=== PATIENT | female | born 1995 | race Caucasian/White ===

== ENCOUNTER 2017-01-19 13:32 | Emergency (ER) | payer SELFPAY ==
[~2017-01-19 13:32] MED LIST: BACI28.34 TP; MUPI15CR TP; PARO20TA3 PO; TRAZ100T12 PO
--- NOTE | 2017-01-19 14:39 | RAD ---
Facial bones, 3 views, 01/19/2017: History: Fall, injury There is a lucency projected over the right zygomatic arch on one view raising the possibility of a nondisplaced fracture. No other fracture is identified. The paranasal sinuses are clear. IMPRESSION: Possible nondisplaced right zygomatic arch fracture.
--- NOTE | 2017-01-19 14:59 | PHYS DOC ---
General Chief Complaint: LACERATION/AVULSION Stated Complaint: FACE LACERATION Time Seen by MD: 14:14 Source: patient Exam Limitations: no limitations Problems: History of Present Illness Initial Comments Pt is 21/F to ED c/o fall injury. Pt states this am she tripped and fell hitting right cheek on pavement. No LOC , +TOUSSAINT no neck pain. Pt has had mild TOUSSAINT and grogginess no focal ND no n/v, no new/progressive symptoms. TD UTD, tried pressure at home but this afternoon decided to come for evaluation. Complains of right cheek pain no ear/nose disch. Occurred: this morning Severity: moderate Injuries/Pain Location: face Context: tripped Loss of Consciousness: no loss of consciousness Allergies: Coded Allergies: No Known Drug Allergies (Unverified , 10/05/15) Past Medical History Medical History: other (self mutilation) Surgical History: noncontributory Social History Smoker: non-smoker Alcohol: none Drugs: none Review of Systems Constitutional: denies chills, denies fever, denies malaise Eyes: denies inflammation, denies pain, denies photophobia Ears, Nose, Mouth, Throat: denies ear discharge, denies nose discharge, denies epistaxis, denies mouth swelling, denies throat swelling Respiratory: denies cough, denies shortness of breath Cardiovascular: denies chest pain, denies palpitations, denies syncope Gastrointestinal: denies diarrhea, denies nausea, denies vomiting Genitourinary: denies dysuria, denies frequency, denies hematuria Musculoskeletal: denies back pain, denies joint swelling, denies neck pain Skin: see HPI Psychiatric/Neurological: denies headache, denies numbness, denies paresthesia Physical Exam General Appearance: WD/WN, no apparent distress Head: other (negative boyd/raccoon eyes, no ear/nose discharge no fluid behind TMs b/l) Eyes: bilateral eye EOMI, bilateral eye PERRL, bilateral eye normal inspection Ears, Nose, Mouth, Throat: hearing grossly normal, no evidence of ENT injury, no dental injury (R facial lac) Neck: non-tender, full range of motion, normal alignment Cardiovascular/Respiratory: normal peripheral pulses, no respiratory distress Gastrointestinal: non tender, soft Back: no CVA tenderness, no vertebral tenderness Extremities: no evidence of injury, normal range of motion, non-tender Neurologic/Psychiatric: explosive specialist II-XII nml as tested, no motor/sensory deficits, alert, normal mood/affect, oriented x 3 Skin: normal color, warm/dry (numerous scars on each extremity appears resultant from self mutilation/cutting all healed. Very superficial clean linear abrasion/laceration R face oriented axially from R malar to R mandible border. No FB, appears to be healing and not new injury no bleeding. Wound edges appear to have some granulation tissue between them, with effort they will approximate.) Tracy Coma Score Best Eye Response: (4) open spontaneously Best Verbal Response: (5) oriented Best Motor Response: (6) obeys commands Tracy Total: 15 Orders, Labs, Meds PATIENT: JEAN YOUNG ACCOUNT: [id number] : 1995 LOCATION: ER AGE: 21 SEX: F EXAM STATUS: REG ER ORD. PHYSICIAN: ALPA BAUMANN DO REASON: fall, R facial trauma PROCEDURE: FACIAL BONES 3+V Facial bones, 3 views, 01/19/2017: History: Fall, injury There is a lucency projected over the right zygomatic arch on one view raising the possibility of a nondisplaced fracture. No other fracture is identified. The paranasal sinuses are clear. IMPRESSION: Possible nondisplaced right zygomatic arch fracture. DICTATED AND SIGNED BY: AJ BLOUNT MD DATE: 01/19/17 1434 CC: PCP,NO; ALPA BAUMANN DO ~ PATIENT: JEAN YOUNG ACCOUNT: [id number] : 1995 LOCATION: ER AGE: 21 SEX: F EXAM STATUS: REG ER ORD. PHYSICIAN: ALPA BAUMANN DO REASON: fall/trauma, questionable fx on XR PROCEDURE: HEAD AND MAXILLOFACIAL WO Indication injury to the head and face. Pain. Noncontrast images of the head were obtained. Maxillofacial CT was also performed. Images of the facial bones were reformatted in the coronal and sagittal planes. Note is made of a prior CT examination of the head November 30, 2015 interpreted as showing no acute finding. Note is made of plain films of the facial bones suggesting a possible fracture of the right zygomatic arch. CT head: Findings The calvarium appears unremarkable. The visualized paranasal sinuses appear normal. There is no subdural or epidural hematoma. There is no mass or midline shift. No hemorrhage is seen. No acute intracranial finding is apparent. Maxillofacial CT: Findings The mandible appears unremarkable. Zygomatic arches appear normal. No fracture involving the right zygomatic arch seen. No maxillary or orbital fracture is seen. A significant soft tissue finding is not apparent. IMPRESSION: Intracranially no acute finding seen. No facial fracture seen PQRS Compliance Statement: One or more of the following individualized dose reduction techniques were utilized for this examination: 1. Automated exposure control 2. Adjustment of the mA and/or kV according to patient size 3. Use of iterative reconstruction technique DICTATED AND SIGNED BY: ROBIN ORNELAS MD DATE: 01/19/17 1534 CC: PCP,NO; ALPA BAUMANN DO ~ Pt reiterates wound not self inflicted and occurred today. I discussed treatment options. Pt requests tissue adhesive. I discussed wound appearance, specifically that portions of it appear to be an abrasion/avulsion with missing skin. Wound also appears to be healing. Tissue adhesive used to approximate wound edges, pt tolerated well no complications. Pt understands scarring is inevitable. Departure Time of Disposition: 15:55 Disposition: 01 HOME, SELF-CARE Diagnosis: Facial laceration, concussion, fall injury Condition: IMPROVED Patient Instructions: Concussion and Brain Injury, [id number], Tissue Adhesive Wound Care Additional Instructions: No strenuous activity or workouts until cleared by your doctor. Work excuse thru 01/21. OTC tylenol as needed. Keep wound dry for 48 hours. After 48 hours may wash briefly with soap and warm water, blot dry. Change dressing each wash. Leave steri strips in place until they fall off. Follow up with your doctor in 5-7 days. Return to ED with new or changing symptoms. ALPA BAUMANN DO Jan 19, 2017 14:59
--- NOTE | 2017-01-19 15:44 | RAD ---
Indication injury to the head and face. Pain. Noncontrast images of the head were obtained. Maxillofacial CT was also performed. Images of the facial bones were reformatted in the coronal and sagittal planes. Note is made of a prior CT examination of the head November 30, 2015 interpreted as showing no acute finding. Note is made of plain films of the facial bones suggesting a possible fracture of the right zygomatic arch. CT head: Findings The calvarium appears unremarkable. The visualized paranasal sinuses appear normal. There is no subdural or epidural hematoma. There is no mass or midline shift. No hemorrhage is seen. No acute intracranial finding is apparent. Maxillofacial CT: Findings The mandible appears unremarkable. Zygomatic arches appear normal. No fracture involving the right zygomatic arch seen. No maxillary or orbital fracture is seen. A significant soft tissue finding is not apparent. IMPRESSION: Intracranially no acute finding seen. No facial fracture seen PQRS Compliance Statement: One or more of the following individualized dose reduction techniques were utilized for this examination: 1. Automated exposure control 2. Adjustment of the mA and/or kV according to patient size 3. Use of iterative reconstruction technique
[2017-01-19 16:05] VITALS: BP 126/94
== END 2017-01-19 16:05 | disposition home or self-care (01) ==
LOC: ER 13:32
DX: S06.0X0A Concussion without loss of consciousness, initial encounter (principal); S01.411A Laceration without foreign body of right cheek and temporomandibular area, initial encounter; W01.0XXA Fall on same level from slipping, tripping and stumbling without subsequent striking against object, initial encounter; Y93.89 Activity, other specified; Y99.8 Other external cause status; Y92.89 Other specified places as the place of occurrence of the external cause
CPT/HCPCS: 70150; 70450; 70486; 99284-25

== ENCOUNTER 2018-03-12 22:33 | Emergency (ER) | payer SELFPAY ==
[~2018-03-12] VITALS: Ht 167.6 cm; Wt 81.6 kg
[2018-03-12 22:33] VITALS: BP 144/61
[~2018-03-12 22:33] MED LIST changes: +TRAZ-90 PO; -TRAZ100T12 PO
[2018-03-13] MEDS ORDERED: ONDANSETRON PF 4 MG/2 ML VIAL. IV ONE (00:15)
[2018-03-13] MEDS ORDERED: IV NORMAL SALINE 1,000ML 1,000 ML IV ONE (00:15)
[2018-03-13 00:29] LABS: U PREG PATIENT NEGATIVE (NEG)
[2018-03-13] MEDS ORDERED: ONDANSETRON ODT 4 MG TAB.RAPDIS ONE (00:32)
[2018-03-13] MEDS ORDERED: ACETAMINOPHEN 500 MG TABLET PO ONE ×3 (00:32→05:15)
[2018-03-13 01:22] LABS: HEMOGLOBIN ISTAT 12.9 gm/dL
[2018-03-13] MEDS ORDERED: ONDA4TAB10 SL (02:52)
--- NOTE | 2018-03-13 02:52 | PHYS DOC ---
Past History Past Medical History: No Pertinent History Past Surgical History: Cholecystectomy Smoking: Non-smoker Alcohol Use: None Drug Use: None Adult General Chief Complaint Chief Complaint: ABDOMINAL PAIN HPI HPI 22-year-old female without significant past medical history now presents to the emergency department reporting several day history of nausea and vomiting. Patient denies fevers chills sweats or shaking chills. She has no abdominal or pelvic pain. Reports normal bowel bladder habits. She has no chest pain or shortness of breath. Denies headache or stiff neck. Patient denies marijuana use as well as cyclic vomiting syndrome history Review of Systems Review of Systems Constitutional: Denies fever or chills [] Eyes: Denies change in visual acuity, redness, or eye pain [] HENT: Denies nasal congestion or sore throat [] Respiratory: Denies cough or shortness of breath [] Cardiovascular: No additional information not addressed in HPI [] GI: Denies abdominal pain, nausea, vomiting, bloody stools or diarrhea [] : Denies dysuria or hematuria [] Musculoskeletal: Denies back pain or joint pain [] Integument: Denies rash or skin lesions [] Neurologic: Denies headache, focal weakness or sensory changes [] Endocrine: Denies polyuria or polydipsia [] All other systems were reviewed and found to be within normal limits, except as documented in this note. Current Medications Current Medications Current Medications Medications (Trade) Dose Ordered Sig/[facility] Start Time Stop Time Status Last Admin Dose Admin Acetaminophen (Tylenol) 500 mg STK-MED ONCE 03/13/18 00:32 03/13/18 00:33 DC Ondansetron HCl (Zofran Odt) 4 mg STK-MED ONCE 03/13/18 00:32 03/13/18 00:33 DC Ondansetron HCl (Zofran) 4 mg 1X ONCE 03/13/18 00:15 03/13/18 00:16 DC Sodium Chloride 1,000 ml @ 1,000 mls/hr 1X ONCE 03/13/18 00:15 03/13/18 01:14 DC 03/13/18 00:15 1,000 MLS/HR Allergies Allergies Allergies Coded Allergies Type Severity Reaction Last Updated Verified No Known Drug Allergies 10/05/15 No Physical Exam Physical Exam Constitutional: Well developed, well nourished, no acute distress, non-toxic appearance. [] HENT: Normocephalic, atraumatic, bilateral external ears normal, oropharynx moist, no oral exudates, nose normal. [] Eyes: PERRLA, EOMI, conjunctiva normal, no discharge. [] Neck: Normal range of motion, no tenderness, supple, no stridor. [] Cardiovascular:Heart rate regular rhythm, no murmur [] Lungs & Thorax: Bilateral breath sounds clear to auscultation [] Abdomen: Bowel sounds normal, soft, no tenderness, no masses, no pulsatile masses. [] Skin: Warm, dry, no erythema, no rash. [] Back: No tenderness, no CVA tenderness. [] Extremities: No tenderness, no cyanosis, no clubbing, ROM intact, no edema. [] Neurologic: Alert and oriented X 3, normal motor function, normal sensory function, no focal deficits noted. [] Psychologic: Affect normal, judgement normal, mood normal. [] Current Patient Data Lab Results Laboratory Tests Test 03/12/18 23:39 03/13/18 01:04 Urine Test Negative (NEG) POC Hemoglobin 12.9 gm/dL POC Hematocrit 38 % POC Sodium 141 mmol/L (135-145) POC Potassium 4.0 mmol/L (3.5-5.0) POC Chloride 101 mmol/L (98-110) POC Total CO2 24 mmol/L (23-32) Anion Gap 20 mmol/L (6-14) H POC Blood Urea Nitrogen 22 mg/dL (8-26) POC Creatinine 0.5 mg/dL (0.5-1.4) Glucose Level 98 mg/dL (60-99) POC Ionized Calcium (Isis) 1.25 mmol/L (1.13-1.32) EKG EKG [] Radiology/Procedures Radiology/Procedures [] Course & Med Decision Making Course & Med Decision Making Pertinent Labs and Imaging studies reviewed. (See chart for details) Signs and symptoms consistent with nausea and vomiting likely secondary to a viral syndrome. Patient is clinically stable and feels improved after IV fluids and treatment. No further workup or treatment is indicated. Patient agrees with outpatient follow-up and strict return precautions given [] Dragon Disclaimer Dragon Disclaimer This electronic medical record was generated, in whole or in part, using a voice recognition dictation system. Departure Departure: Impression: Primary Impression: Nausea and vomiting Disposition: HOME, SELF-CARE Condition: IMPROVED Referrals: [facility] (PCP) Patient Instructions: Nausea and Vomiting Additional Instructions: It is not clear what is causing your nausea and vomiting today. Take Zofran 4 mg under your tongue every 4 hours as needed. Rest and drink plenty of fluids. Follow-up with your doctor later today and return immediately for new severe or worsening symptoms Scripts Ondansetron (ZOFRAN ODT) 4 Mg Tab.rapdis 1 TAB SL Q4HRS, #15 TAB Prov: DANIEL HOFFMAN MD 03/13/18 DANIEL HOFFMAN MD March 13, 2018 02:52
[2018-03-13] MEDS ORDERED: ONDANSETRON ODT 4 MG TAB.RAPDIS PO ONE (05:15)
== END 2018-03-13 03:00 | disposition home or self-care (01) ==
LOC: ER 22:33
DX: R11.2 Nausea with vomiting, unspecified (principal)
CPT/HCPCS: 36415; 80047; 81025; 85014; 85018; 96360; 96361; 99285; Q0162; J7030

== ENCOUNTER 2019-03-15 18:15 | Emergency (ER) | payer SELFPAY ==
[~2019-03-15] VITALS: Ht 170.2 cm; Wt 82.8 kg
[~2019-03-15 18:15] MED LIST changes: +ONDA4TAB10 SL; +TRAZ-86 PO; -TRAZ-90 PO
--- NOTE | 2019-03-15 18:41 | ED.ADGEN ---
Past History Past Medical History: No Pertinent History, Anxiety, Depression Past Surgical History: Cholecystectomy Smoking: Non-smoker Alcohol Use: Occasionally Drug Use: None Adult General Chief Complaint Chief Complaint ".. My dog Malinda... jerks when I walk her... and it hurt my Lt. shoulder..." HPI HPI Patient is a 23 year old female who presents with above hx and complaints of Lt. shoulder injury from her [place] [employer] 'Malinda" jerking on the lease 2 weeks ago. Pt. localizes pain in deltoid of Lt shoulder. Does have range of motion with mild tenderness when held at side. Distal neurovascular intact. Patient is right-hand dominant. Patient denies prior injury to left shoulder. No history of travel. No history immunosuppression. Patient does have a history of anxiety disorder and depression. . Review of Systems Review of Systems Constitutional: Denies fever or chills [] Eyes: Denies change in visual acuity, redness, or eye pain [] HENT: Denies nasal congestion or sore throat [] Respiratory: Denies cough or shortness of breath [] Cardiovascular: No additional information not addressed in HPI [] GI: Denies abdominal pain, nausea, vomiting, bloody stools or diarrhea [] : Denies dysuria or hematuria [] Musculoskeletal: Denies back pain or joint pain []complains of left shoulder pain Integument: Denies rash or skin lesions [] Neurologic: Denies headache, focal weakness or sensory changes [] Endocrine: Denies polyuria or polydipsia [] All other systems were reviewed and found to be within normal limits, except as documented in this note. Family History Family History Noncontributory Current Medications Current Medications Current Medications Medications (Trade) Dose Ordered Sig/[facility] Start Time Stop Time Status Last Admin Dose Admin Ketorolac Tromethamine (Toradol Im) 60 mg 1X ONCE 03/15/19 20:15 03/15/19 20:16 DC 03/15/19 20:04 60 MG Allergies Allergies Allergies Coded Allergies Type Severity Reaction Last Updated Verified No Known Drug Allergies 10/05/15 No Physical Exam Physical Exam Constitutional: no acute distress, non-toxic appearance. [] HENT: Normocephalic, atraumatic, bilateral external ears normal, oropharynx moist, no oral exudates, nose normal. [] Eyes: PERRLA, EOMI, conjunctiva normal, no discharge. [] Neck: Normal range of motion, no tenderness, supple, no stridor. [] Cardiovascular:Heart rate regular rhythm, no murmur [] Lungs & Thorax: Bilateral breath sounds clear to auscultation [] Abdomen: Bowel sounds normal, soft, no tenderness, no masses, no pulsatile masses. [] Old surgery scars Skin: Warm, dry, no erythema, no rash. [] Multiple self cutting roberson and scars. Back: No tenderness, no CVA tenderness. [] Extremities: No tenderness, no cyanosis, no clubbing, ROM intact, no edema. [] Mild tenderness in range of motion of left shoulder. Has deltoid sensation. Neurologic: Alert and oriented X 3, normal motor function, normal sensory function, no focal deficits noted. [] Psychologic: Affect anxious, judgement normal, mood normal. [] Current Patient Data Vital Signs Vital Signs Date Time Temp Pulse Resp B/P (MAP) Pulse Ox O2 Delivery O2 Flow Rate FiO2 03/15/19 20:18 93 20 121/80 (94) 98 Room Air 03/15/19 18:25 97.7 Lab Results Laboratory Tests Test 03/15/19 18:55 03/15/19 19:05 Urine Collection Type Unknown Urine Color Yellow Urine Clarity Turbid Urine pH 6.5 Urine Specific Jack 1.020 Urine Protein Neg (NEG-TRACE) Urine Glucose (UA) Neg mg/dL (NEG) Urine Ketones (Stick) Neg mg/dL (NEG) Urine Blood Small (NEG) Urine Nitrite Neg (NEG) Urine Bilirubin Neg (NEG) Urine Urobilinogen Dipstick 0.2 mg/dL (0.2 mg/dL) Urine Leukocyte Esterase Trace (NEG) Urine RBC 1-2 /HPF (0-2) Urine WBC 1-4 /HPF (0-4) Urine Squamous Epithelial Cells Occ /LPF Urine Bacteria Few /HPF (0-FEW) Urine Mucus Slight /LPF Urine Opiates Screen Neg (NEG) Urine Methadone Screen Neg (NEG) Urine Barbiturates Neg (NEG) Urine Phencyclidine Screen Neg (NEG) Urine Amphetamine/Methamphetamine Neg (NEG) Urine Benzodiazepines Screen Neg (NEG) Urine Cocaine Screen Neg (NEG) Urine Cannabinoids Screen Neg (NEG) Urine Ethyl Alcohol Neg (NEG) POC Urine HCG, Qualitative hcg negative (Negative) EKG EKG [] Radiology/Procedures Radiology/Procedures My interpretation chest x-ray shows no acute cardiopulmonary findings. My interpretation left shoulder shows no obvious fracture or dislocation.[] Course & Med Decision Making Course & Med Decision Making Pertinent Labs and Imaging studies reviewed. (See chart for details). Use ice packs as needed. Rest. Keep passive range of motion in left shoulder. Take Tylenol and ibuprofen for pain. Return if any concerns. Follow-up primary care. [] Final Impression Final Impression 1. Shoulder Strain[] Lt. 2. History of anxiety 3. History depression 4. History of self cutting Dragon Disclaimer Dragon Disclaimer This electronic medical record was generated, in whole or in part, using a voice recognition dictation system. Discharge Summary Visit Information Final Diagnosis Problems Medical Problems: (1) Left shoulder strain Status: Acute Brief Hospital Course Allergies Allergies Coded Allergies Type Severity Reaction Last Updated Verified No Known Drug Allergies 10/05/15 No Vital Signs Vital Signs Date Time Temp Pulse Resp B/P (MAP) Pulse Ox O2 Delivery O2 Flow Rate FiO2 03/15/19 20:18 93 20 121/80 (94) 98 Room Air 03/15/19 18:25 97.7 Lab Results Laboratory Tests Test 03/15/19 18:55 03/15/19 19:05 Urine Collection Type Unknown Urine Color Yellow Urine Clarity Turbid Urine pH 6.5 Urine Specific Jack 1.020 Urine Protein Neg (NEG-TRACE) Urine Glucose (UA) Neg mg/dL (NEG) Urine Ketones (Stick) Neg mg/dL (NEG) Urine Blood Small (NEG) Urine Nitrite Neg (NEG) Urine Bilirubin Neg (NEG) Urine Urobilinogen Dipstick 0.2 mg/dL (0.2 mg/dL) Urine Leukocyte Esterase Trace (NEG) Urine RBC 1-2 /HPF (0-2) Urine WBC 1-4 /HPF (0-4) Urine Squamous Epithelial Cells Occ /LPF Urine Bacteria Few /HPF (0-FEW) Urine Mucus Slight /LPF Urine Opiates Screen Neg (NEG) Urine Methadone Screen Neg (NEG) Urine Barbiturates Neg (NEG) Urine Phencyclidine Screen Neg (NEG) Urine Amphetamine/Methamphetamine Neg (NEG) Urine Benzodiazepines Screen Neg (NEG) Urine Cocaine Screen Neg (NEG) Urine Cannabinoids Screen Neg (NEG) Urine Ethyl Alcohol Neg (NEG) Bedside Urine HCG, Qualitative hcg negative (Negative) Brief Hospital Course Ms. Mcintosh is a 23 old female who presented with Lt shoulder strain. Discharge Information Condition at Discharge: Improved, Stable Disposition/Orders: D/C to Home Dischare Medications Current Medications Ketorolac Tromethamine (Toradol Im) 60 mg 1X ONCE IM Last administered on 03/15/19at 20:04; Admin Dose 60 MG; Start 03/15/19 at 20:15; Stop 03/15/19 at 20:16; Status DC Active Scripts Active Zofran Odt (Ondansetron) 4 Mg Tab.rapdis 1 Tab SL Q4HRS Bactroban (Mupirocin Calcium) 15 Gm Cream..g. 1 Yosef TP TID Polysporin Ointment (Bacitracin/Polymyxin B Sulfate) 28.3 Gm Oint...g. 28.3 Gm TP QID 10 Days Reported Paroxetine Hcl 20 Mg Tablet 20 Mg PO DAILY Trazodone Hcl 100 Mg Tablet 100 Mg PO QHS Dragon Disclaimer This chart was dictated in whole or in part using Voice Recognition software in a busy, high-work load, and often noisy Emergency Department environment. It may contain unintended and wholly unrecognized errors or omissions. SHONNA BILL MD March 15, 2019 18:41
[2019-03-15 19:18] LABS: BACTERIA,URINE FEW /HPF (0-FEW); BILIRUBIN,URINE NEG (NEG); CLARITY,URINE TURBID; COLOR,URINE YELLOW; GLUCOSE,URINE NEG (NEG); NITRITE,URINE NEG (NEG); SQUAMOUS EPITHELIAL CELL,UR OCC /LPF; UROBILINOGEN,URINE 0.2 mg/dL (0.2 mg/dL)
[2019-03-15 19:22] LABS: AMPHETAMINE/METHAMPHETAMINE NEG (NEG); BARBITURATES NEG (NEG); BENZODIAZEPINES NEG (NEG); CANNABINOIDS NEG (NEG); COCAINE NEG (NEG); METHADONE NEG (NEG); OPIATES NEG (NEG); PHENCYCLIDINE NEG (NEG)
[2019-03-15] MEDS: KETOROLAC 60 MG/2 ML VIAL. IM ONE (20:04)
[2019-03-15 20:18] VITALS: BP 121/80
--- NOTE | 2019-03-15 23:54 | RAD ---
Three-view left shoulder radiographs 03/15/2019 CLINICAL HISTORY: Left shoulder pain. Injury. AP internal and external rotation and transscapular digital radiographs of the left shoulder were obtained. No fracture or dislocation of the left shoulder is seen. IMPRESSION: No fracture or dislocation of the left shoulder is seen. Electronically signed by: Marquez Rivers MD (03/15/2019 11:51 PM) [facility]
--- NOTE | 2019-03-16 00:06 | RAD ---
PA and lateral chest radiographs 03/15/2019 Clinical History: Left-sided chest pain. No known injury. PA and lateral digital radiographs of the chest were obtained. No previous studies are available for comparison. The cardiac and mediastinal silhouettes are within normal limits in size and configuration. No pulmonary infiltrate is seen. No pleural effusion or pneumothorax is noted. The osseous structures are grossly intact. Impression: No radiographic evidence of active cardiopulmonary disease. Electronically signed by: Marquez Rivers MD (03/16/2019 12:03 AM) [facility]
== END 2019-03-15 20:20 | disposition home or self-care (01) ==
LOC: ER 18:15
DX: S46.912A Strain of unspecified muscle, fascia and tendon at shoulder and upper arm level, left arm, initial encounter (principal); F41.9 Anxiety disorder, unspecified; F32.9 Major depressive disorder, single episode, unspecified; Z91.5 Personal history of self-harm; X50.9XXA Other and unspecified overexertion or strenuous movements or postures, initial encounter; Y93.K1 Activity, walking an animal; Y92.89 Other specified places as the place of occurrence of the external cause; Y99.8 Other external cause status
CPT/HCPCS: 36415; 71046; 73030; 80307; 81001; 81025; 87086; 96372; 99285; J1885

== ENCOUNTER 2019-05-16 16:18 | Emergency (ER) | payer SELFPAY ==
[~2019-05-16] VITALS: Ht 170.2 cm; Wt 82.8 kg
[2019-05-16] MEDS ORDERED: IV NORMAL SALINE 1,000ML 1,000 ML IV ONE (16:45)
--- NOTE | 2019-05-16 16:47 | PHYS DOC ---
Past History Past Medical History: No Pertinent History, Anxiety, Depression Past Surgical History: Cholecystectomy, Other Smoking: Non-smoker Alcohol Use: Rarely Drug Use: None Adult General Chief Complaint Chief Complaint: DIZZY/LIGHT HEADED [facility] HPI The patient is a pleasant 24-year-old female who presents for evaluation of lightheadedness. She states that she has felt this way previously before having seizures. She denies any formal neurologic workup in the past and does not take any seizure occasions. She thinks she has had 3 or 4 total, all as an adult. 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 She is alert and oriented 4, calm, and appears to be in no distress at this time. She denies headache, neck pain or stiffness, fevers or chills, nausea or vomiting, chest pain or shortness of breath, abdominal or back pain, or syncope. She states that she is not . Review of Systems Review of Systems Constitutional: Denies fever or chills [] lightheadedness Eyes: Denies change in visual acuity, redness, or eye pain [] HENT: Denies nasal congestion or sore throat [] Respiratory: Denies cough or shortness of breath [] Cardiovascular: No additional information not addressed in HPI [] GI: Denies abdominal pain, nausea, vomiting, bloody stools or diarrhea [] : Denies dysuria or hematuria [] Musculoskeletal: Denies back pain or joint pain [] Integument: Denies rash or skin lesions [] Neurologic: Denies headache, focal weakness or sensory changes [] Endocrine: Denies polyuria or polydipsia [] All other systems were reviewed and found to be within normal limits, except as documented in this note. Allergies Allergies Allergies Coded Allergies Type Severity Reaction Last Updated Verified No Known Drug Allergies 10/05/15 No Physical Exam Physical Exam Constitutional: Well developed, well nourished, no acute distress, non-toxic appearance. [] appears comfortable HENT: Normocephalic, atraumatic, bilateral external ears normal, oropharynx moist, no oral exudates, nose normal. [] Eyes: PERRLA, EOMI, conjunctiva normal, no discharge. [] Neck: Normal range of motion, no tenderness, supple, no stridor. [] Cardiovascular:Heart rate regular rhythm, no murmur [] Lungs & Thorax: Bilateral breath sounds clear to auscultation [] Abdomen: Bowel sounds normal, soft, no tenderness, no masses, no pulsatile masses. [] Skin: Warm, dry, no erythema, no rash. [] Back: No tenderness, no CVA tenderness. [] Extremities: No tenderness, no cyanosis, no clubbing, ROM intact, no edema. [] Neurologic: Alert and oriented X 3, normal motor function, normal sensory function, no focal deficits noted. [] Psychologic: Affect normal, judgement normal, mood normal. [] EKG EKG [] Radiology/Procedures Radiology/Procedures [] Course & Med Decision Making Course & Med Decision Making Patient updated on lab results. She has no additional complaints and is asking t o go home with a work note. Workup today fails to reveal any emergent pathology. The patient verbal understanding and agreement with the plan and is stable for discharge home at this time. Dragon Disclaimer Dragon Disclaimer This electronic medical record was generated, in whole or in part, using a voice recognition dictation system. Departure Departure: Impression: Primary Impression: Light-headed feeling Disposition: 01 HOME, SELF-CARE Condition: STABLE Referrals: PCP,SREEDHAR (PCP) Patient Instructions: Dizziness Additional Instructions: Follow-up with your doctor next 2-3 days. Return to the ER for new or worsening symptoms. BIJU HERNANDEZ DO May 16, 2019 16:47
[2019-05-16 17:02] LABS: BILIRUBIN,URINE NEG (NEG); CLARITY,URINE CLOUDY; COLOR,URINE AMBER; GLUCOSE,URINE NEG (NEG)
[2019-05-16 17:03] LABS: BACTERIA,URINE 0 /HPF (0-FEW); NITRITE,URINE NEG (NEG); SQUAMOUS EPITHELIAL CELL,UR OCC /LPF; UROBILINOGEN,URINE 0.2 mg/dL (0.2 mg/dL); WBC,URINE OCC /HPF (0-4)
[2019-05-16 17:10] LABS: BASO % 1 % (0-3); EOS # 0.1 x10^3/uL (0.0-0.7); EOS % 1 % (0-3); HEMOGLOBIN 13.6 g/dL (12.0-15.5); LYMPH # 2.3 x10^3/uL (1.0-4.8); LYMPH % 34 % (24-48); MEAN CORPUSCULAR HEMOGLOBIN 29 pg (25-35); MEAN CORPUSCULAR HGB CONC 33 g/dL (31-37); MEAN CORPUSCULAR VOLUME 87 fL (79-100); MONO # 0.5 x10^3/uL (0.0-1.1); MONO % 7 % (0-9); NEUT # 3.9 x10^3uL (1.8-7.7); NEUT % 57 % (31-73); PLATELET COUNT 331 x10^3/uL (140-400); RED BLOOD COUNT 4.73 x10^6/uL (3.50-5.40); RED CELL DISTRIBUTION WIDTH 14.4 % (11.5-14.5); WHITE BLOOD COUNT 6.8 x10^3/uL (4.0-11.0)
[2019-05-16 17:21] LABS: ALBUMIN/GLOBULIN RATIO 1.3 (1.0-1.7); CALCIUM 9.5 mg/dL (8.5-10.1); CREATININE 0.7 mg/dL (0.6-1.0); GFR 103.7; POTASSIUM 4.6 mmol/L (3.5-5.1); TOTAL BILIRUBIN 0.4 mg/dL (0.2-1.0); TOTAL PROTEIN 7.1 g/dL (6.4-8.2)
[2019-05-16 17:33] VITALS: BP 106/63
== END 2019-05-16 17:47 | disposition home or self-care (01) ==
LOC: ER 16:18
DX: R42 Dizziness and giddiness (principal)
CPT/HCPCS: 36415; 80053; 81001; 81025; 85025; 96361; 96374; 99284; J2060; J7030

== ENCOUNTER 2019-07-01 11:33 | Emergency (ER) | payer SELFPAY ==
[~2019-07-01] VITALS: Ht 167.6 cm; Wt 82.8 kg
--- NOTE | 2019-07-01 11:57 | PHYS DOC ---
Past History Past Medical History: Anxiety, Depression, Seizure, Other Past Surgical History: Cholecystectomy Smoking: Non-smoker Alcohol Use: None Drug Use: None Adult General Chief Complaint Chief Complaint: COUGH HPI HPI 24-year-old female presents with cough for the last 5 weeks. The patient has a smoker. She has been diagnosed with pneumonia at another facility. She has had a couple rounds of steroids as well as antibiotics for pneumonia a few weeks ago. She does not know what the antibiotic was. She continues to have a persistent cough every day. She has decreased her smoking to 2 or 3 cigarettes a day. She has not had breathing treatments at home. She has no other diagnosed lung conditions. She denies fever or chills. She has not tried Tessalon Perles because the prescription was too expensive. Review of Systems Review of Systems Constitutional: Denies fever or chills [] Eyes: Denies change in visual acuity, redness, or eye pain [] HENT: Denies nasal congestion or sore throat [] Respiratory: Cough without shortness of breath [] Cardiovascular: No additional information not addressed in HPI [] GI: Denies abdominal pain, nausea, vomiting, bloody stools or diarrhea [] : Denies dysuria or hematuria [] Musculoskeletal: Denies back pain or joint pain [] Integument: Denies rash or skin lesions [] Neurologic: Denies headache, focal weakness or sensory changes [] Endocrine: Denies polyuria or polydipsia [] All other systems were reviewed and found to be within normal limits, except as documented in this note. Allergies Allergies Allergies Coded Allergies Type Severity Reaction Last Updated Verified No Known Drug Allergies 10/05/15 No Physical Exam Physical Exam Constitutional: Well developed, well nourished, no acute distress, non-toxic appearance. [] HENT: Normocephalic, atraumatic, bilateral external ears normal, oropharynx moist, no oral exudates, nose normal. [] Eyes: PERRLA, EOMI, conjunctiva normal, no discharge. [] Neck: Normal range of motion, no tenderness, supple, no stridor. [] Cardiovascular:Heart rate regular rhythm, no murmur [] Lungs & Thorax: Coughing. Bilateral breath sounds clear to auscultation [] Abdomen: Bowel sounds normal, soft, no tenderness, no masses, no pulsatile masses. [] Skin: Warm, dry, signs of cutting on the left forearm. Some recent. Scar on right cheek.[] Back: No tenderness, no CVA tenderness. [] Extremities: No tenderness, no cyanosis, no clubbing, ROM intact, no edema. [] Neurologic: Alert and oriented X 3, normal motor function, normal sensory function, no focal deficits noted. [] Psychologic: Affect normal, judgement normal, mood normal. [] EKG EKG [] Radiology/Procedures Radiology/Procedures [] Impressions: PA and lateral views of the chest. Comparison: 03/15/2019. Indication: Cough and shortness of breath Findings: The heart size is normal. No pneumothorax or effusion. No air space or interstitial disease. The bony structures are intact. Impression: 1. No acute cardiopulmonary process. Electronically signed by: Neyda Todd MD (07/01/2019 12:22 PM) [facility] DICTATED AND SIGNED BY: NEYDA TODD MD DATE: 07/01/19 1222 CC: RENETTA SLOIS DO; PCP,NO ~ Course & Med Decision Making Course & Med Decision Making Pertinent Labs and Imaging studies reviewed. (See chart for details) The patient's labs are unremarkable. Her chest x-rays negative for pneumonia. We did give her a DuoNeb treatment which seemed to help with her cough. She really has an albuterol MDI prescription, but did not fill it due to cost. I discussed the this may be working best for the patient hasn't may help quite a bit with her symptoms. She is stable for discharge at this time. [] Dragon Disclaimer Dragon Disclaimer This electronic medical record was generated, in whole or in part, using a voice recognition dictation system. Departure Departure: Impression: Primary Impression: Cough Additional Impression: Marijuana use Disposition: HOME, SELF-CARE Condition: STABLE Referrals: PCP,NO (PCP) Patient Instructions: Cough, Adult, [id number], Marijuana Abuse-Brief Problem Qualifiers RENETTA SOLIS DO Jul 01, 2019 11:57
[2019-07-01 12:08] VITALS: BP 128/70
[2019-07-01] MEDS ORDERED: IPRATRPIUM/ALBUTEROL 0.5/2.5MG 3 ML NEBU. NEB ONE (12:15)
[2019-07-01 12:22] LABS: BASO % 0 % (0-3); EOS # 0.1 x10^3/uL (0.0-0.7); EOS % 1 % (0-3); HEMATOCRIT 39.9 % (36.0-47.0); HEMOGLOBIN 13.2 g/dL (12.0-15.5); LYMPH # 2.4 x10^3/uL (1.0-4.8); LYMPH % 49 % (24-48); MEAN CORPUSCULAR HEMOGLOBIN 29 pg (25-35); MEAN CORPUSCULAR HGB CONC 33 g/dL (31-37); MEAN CORPUSCULAR VOLUME 88 fL (79-100); MONO # 0.4 x10^3/uL (0.0-1.1); MONO % 9 % (0-9); NEUT % 41 % (31-73); PLATELET COUNT 303 x10^3/uL (140-400); RED BLOOD COUNT 4.55 x10^6/uL (3.50-5.40); RED CELL DISTRIBUTION WIDTH 15.5 % (11.5-14.5); WHITE BLOOD COUNT 4.9 x10^3/uL (4.0-11.0)
--- NOTE | 2019-07-01 12:25 | RAD ---
PA and lateral views of the chest. Comparison: 03/15/2019. Indication: Cough and shortness of breath Findings: The heart size is normal. No pneumothorax or effusion. No air space or interstitial disease. The bony structures are intact. Impression: 1. No acute cardiopulmonary process. Electronically signed by: Miky Mendiola MD (07/01/2019 12:22 PM) [facility]
[2019-07-01 12:29] LABS: BILIRUBIN,URINE NEG (NEG); CLARITY,URINE HAZY; COLOR,URINE YELLOW; GLUCOSE,URINE NEG (NEG)
[2019-07-01 12:30] LABS: BARBITURATES NEG (NEG); BENZODIAZEPINES NEG (NEG); CANNABINOIDS POS (NEG); COCAINE NEG (NEG); METHADONE NEG (NEG); NITRITE,URINE NEG (NEG); OPIATES NEG (NEG); PHENCYCLIDINE NEG (NEG); UROBILINOGEN,URINE 0.2 mg/dL (0.2 mg/dL)
[2019-07-01 12:31] LABS: AMPHETAMINE/METHAMPHETAMINE NEG (NEG)
[2019-07-01 12:36] LABS: ALBUMIN 3.9 g/dL (3.4-5.0); ALBUMIN/GLOBULIN RATIO 1.2 (1.0-1.7); CALCIUM 9.2 mg/dL (8.5-10.1); CREATININE 0.9 mg/dL (0.6-1.0); GFR 77.6; POTASSIUM 3.4 mmol/L (3.5-5.1); TOTAL BILIRUBIN 0.4 mg/dL (0.2-1.0); TOTAL PROTEIN 7.1 g/dL (6.4-8.2)
== END 2019-07-01 12:59 | disposition home or self-care (01) ==
LOC: ER 11:33
DX: R05 Cough (principal); F12.90 Cannabis use, unspecified, uncomplicated; F17.210 Nicotine dependence, cigarettes, uncomplicated
CPT/HCPCS: 36415; 71046; 80053; 80307; 81003; 85025; 94640; 99285; J7620

== ENCOUNTER 2019-07-28 17:54 | Emergency (ER) | payer SELFPAY ==
[~2019-07-28] VITALS: Ht 167.6 cm; Wt 81.6 kg
[2019-07-28 18:39] VITALS: BP 122/79
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
[2019-07-28] MEDS ORDERED: ACETAMINOPHEN 500 MG TABLET PO ONE (19:30)
--- NOTE | 2019-07-28 19:53 | RAD ---
3 views left foot dated 07/28/2019. No comparison available. Clinical data indication: Pain. FINDINGS: 3 views left foot show normal bony alignment. No displaced fracture. No acute osseous or articular abnormality. IMPRESSION: No acute findings. Electronically signed by: Edenilson Souza MD (07/28/2019 7:50 PM) [facility]
== END 2019-07-28 20:09 | disposition home or self-care (01) ==
LOC: ER 17:54
DX: S93.602A Unspecified sprain of left foot, initial encounter (principal); F41.9 Anxiety disorder, unspecified; F32.9 Major depressive disorder, single episode, unspecified; F43.10 Post-traumatic stress disorder, unspecified; F17.210 Nicotine dependence, cigarettes, uncomplicated; X58.XXXA Exposure to other specified factors, initial encounter; Y93.89 Activity, other specified; Y92.89 Other specified places as the place of occurrence of the external cause; Y99.8 Other external cause status
CPT/HCPCS: 73630; 99284

== ENCOUNTER 2019-11-26 09:51 | Emergency (ER) | payer SELFPAY ==
[~2019-11-26] VITALS: Ht 167.6 cm; Wt 80.6 kg
[~2019-11-26 09:51] MED LIST changes: +TRAZ-125 PO; -TRAZ-86 PO
--- NOTE | 2019-11-26 10:11 | PHYS DOC ---
Past History Past Medical History: Anxiety, Depression, Other Additional Past Medical Histor: PTSD Past Surgical History: Cholecystectomy Smoking: Cigarettes Alcohol Use: Occasionally Drug Use: Marijuana Adult General Chief Complaint Chief Complaint: MECHANICAL FALL HPI HPI 24-year-old female presents to the ED via EMS following a fall. Mechanism: The patient reports that prior to arrival she slipped on ice in the parking lot of her apartment, fell forward on her face and "lost consciousness" for a number of minutes. She states that she was found by somebody in the parking lot and called the ambulance. Patient states that most of her pain is in her face, head, and neck. States symptoms: nausea and headache. Patient denies any lower extremity or hip pain, vomiting, changes in vision, chest pain, or shortness of breath. Patient denies possibility of . Patient states that she is currently not on any medications. Review of Systems Review of Systems Constitutional: Denies fever or chills Eyes: Denies redness or eye pain HENT: Denies nasal congestion or sore throat; reports face pain Respiratory: Denies cough or shortness of breath Cardiovascular: Denies chest pain or palpitations GI: Denies abdominal pain, nausea, or vomiting : Denies dysuria or hematuria Musculoskeletal: Denies back pain; reports neck pain Integument: Denies rash or skin lesions Neurologic: Reports headache; denies focal weakness or sensory changes Complete systems were reviewed and found to be within normal limits, except as documented in this note. Allergies Allergies Allergies Coded Allergies Type Severity Reaction Last Updated Verified No Known Drug Allergies 10/05/15 No Physical Exam Physical Exam Constitutional: Well developed, well nourished, no acute distress, non-toxic appearance HENT: Normocephalic, superficial abrasions and dried blood around the nares. No facial deformity or ecchymosis noted, TMs clear Eyes: PERRL, EOMI, conjunctiva normal, no discharge, no nystagmus Neck: C-collar in place, supple Cardiovascular: Heart rate normal, regular rhythm Lungs & Thorax: Bilateral breath sounds clear to auscultation, no wheezing Abdomen: Soft, no tenderness, pelvis stable and nontender Skin: Warm, dry, no erythema, superficial abrasions on the dorsal aspect of the left hand. Back: No midline tenderness, no CVA tenderness Extremities: No tenderness, ROM intact, no edema Neurologic: Alert and oriented X 3, normal motor function, normal sensory function, no focal deficits noted, cerebellar functions intact Psychologic: Affect normal, judgement normal EKG EKG [] Radiology/Procedures Radiology/Procedures PROCEDURE: CT MAXILLOFACIAL WO CONTRAST CT MAXILLOFACIAL WO CONTRAST Indication: Pain after a fall Technique: Noncontrast CT imaging was performed of the maxillofacial region, multiplanar reconstruction images submitted. One or more of the following individualized dose reduction techniques were utilized for this examination: 1. Automated exposure control 2. Adjustment of the mA and/or kV according to patient size 3. Use of iterative reconstruction technique. Comparison: None Findings: Paranasal sinuses are overall aerated, no air-fluid levels. No acute maxillofacial fracture is identified. There is jewelry of the right nose. IMPRESSION: 1. No acute maxillofacial fracture is identified. Electronically signed by: Francisco Doss MD (11/26/2019 10:59 AM) [facility] PROCEDURE: CT HEAD AND CERVICAL SPINE WO CT HEAD AND CERVICAL SPINE WO History: Pain. Fall. Comparison: None. Technique: Noncontrast CT imaging was performed of the head and cervical spine. Coronal and sagittal reconstructions were performed. Exposure: One or more of the following individualized dose reduction techniques were utilized for this examination: 1. Automated exposure control 2. Adjustment of the mA and/or kV according to patient size 3. Use of iterative reconstruction technique. Findings: Head CT: No intracranial hemorrhage. No mass effect. No hydrocephalus. Extra-axial spaces are unremarkable. Imaged orbits are unremarkable. Imaged paranasal sinuses and mastoid air cells are clear. No acute calvarial fracture. Cervical spine CT: Straightening of the normal cervical lordosis. Normal vertebral body height. No fracture. Soft tissues unremarkable. Impression: Head CT: 1. No acute intracranial abnormality. Cervical spine CT: 1. No acute fracture or subluxation of the cervical spine. Electronically signed by: Wan Kenney DO (11/26/2019 11:06 AM) [facility] Course & Med Decision Making Course & Med Decision Making Pertinent Labs and Imaging studies reviewed. (See chart for details) Patient presents via EMS to the emergency department following a fall with loss of consciousness after slipping on ice. Neurologic exam is benign and the patient denies presyncopal episode. Urine is negative. Imaging unremarkable, no fractures or internal bleeding. 1120: C-collar cleared. Extensive discussion with patient regarding lab and imaging findings. Patient states she still has some nausea and pain. Pain addressed. Patient stable for discharge with outpatient follow-up with PCP. Discussed findings and plan with patient, who acknowledges understanding and agreement. Dragon Disclaimer Dragon Disclaimer This electronic medical record was generated, in whole or in part, using a voice recognition dictation system. Departure Departure: Impression: Primary Impression: Fall Additional Impressions: Facial abrasion Neck pain Head contusion Multiple abrasions Disposition: HOME, SELF-CARE Condition: STABLE Referrals: PCP,NO (PCP) Patient Instructions: Abrasion, [id number], Cervical Strain and Sprain with Rehab-SportsMed, Fall Prevention and Home Safety, [id number], Head Injury, Adult, [id number] Additional Instructions: ICE area 20 min on then leave off next 20 min as needed for next few days. Use over the counter Tylenol and/or Ibuprofen for pain. Scripts Orphenadrine Citrate (ORPHENADRINE CITRATE) 100 Mg Tablet.er 1 TAB PO BID PRN for MUSCLE PAIN, #14 TAB 0 Refills Prov: DANIEL SANCHEZ DO 11/26/19 Problem Qualifiers Primary Impression: Fall Encounter type: initial encounter Qualified Codes: W19.XXXA - Unspecified fall, initial encounter Additional Impressions: Facial abrasion Encounter type: initial encounter Qualified Codes: S00.81XA - Abrasion of other part of head, initial encounter Head contusion Encounter type: initial encounter Contusion of head detail: unspecified part of head Qualified Codes: S00.93XA - Contusion of unspecified part of head, initial encounter DANIEL SANCHZE DO Nov 26, 2019 10:11
[2019-11-26] MEDS ORDERED: ONDANSETRON PF 4 MG/2 ML VIAL. IVP ONE ×2 (10:15→11:30)
[2019-11-26] MEDS ORDERED: NEOMY/BACITR/POLYMYXIN OINT PACKET. TP ONE (10:15)
[2019-11-26 10:39] LABS: PREG TEST PT QUAL NEGATIVE (NEG)
--- NOTE | 2019-11-26 11:02 | RAD ---
CT MAXILLOFACIAL WO CONTRAST Indication: Pain after a fall Technique: Noncontrast CT imaging was performed of the maxillofacial region, multiplanar reconstruction images submitted. One or more of the following individualized dose reduction techniques were utilized for this examination: 1. Automated exposure control 2. Adjustment of the mA and/or kV according to patient size 3. Use of iterative reconstruction technique. Comparison: None Findings: Paranasal sinuses are overall aerated, no air-fluid levels. No acute maxillofacial fracture is identified. There is jewelry of the right nose. IMPRESSION: 1. No acute maxillofacial fracture is identified. Electronically signed by: Francisco Doss MD (11/26/2019 10:59 AM) [place] [facility]
--- NOTE | 2019-11-26 11:09 | RAD ---
CT HEAD AND CERVICAL SPINE WO History: Pain. Fall. Comparison: None. Technique: Noncontrast CT imaging was performed of the head and cervical spine. Coronal and sagittal reconstructions were performed. Exposure: One or more of the following individualized dose reduction techniques were utilized for this examination: 1. Automated exposure control 2. Adjustment of the mA and/or kV according to patient size 3. Use of iterative reconstruction technique. Findings: Head CT: No intracranial hemorrhage. No mass effect. No hydrocephalus. Extra-axial spaces are unremarkable. Imaged orbits are unremarkable. Imaged paranasal sinuses and mastoid air cells are clear. No acute calvarial fracture. Cervical spine CT: Straightening of the normal cervical lordosis. Normal vertebral body height. No fracture. Soft tissues unremarkable. Impression: Head CT: 1. No acute intracranial abnormality. Cervical spine CT: 1. No acute fracture or subluxation of the cervical spine. Electronically signed by: Wan Kenney DO (11/26/2019 11:06 AM) [facility]
[2019-11-26 11:25] VITALS: BP 125/76
[2019-11-26] MEDS ORDERED: KETOROLAC 15 MG/ML VIAL. IVP ONE (11:30)
[2019-11-26] MEDS ORDERED: ORPHENADRINE CITRATE 60 MG/2 ML VIAL. IV ONE (11:30)
[2019-11-26] MEDS ORDERED: ORPH-16 PO (11:33)
== END 2019-11-26 11:40 | disposition home or self-care (01) ==
LOC: ER 09:51
DX: S00.93XA Contusion of unspecified part of head, initial encounter (principal); S00.81XA Abrasion of other part of head, initial encounter; M54.2 Cervicalgia; F41.9 Anxiety disorder, unspecified; F32.9 Major depressive disorder, single episode, unspecified; F43.10 Post-traumatic stress disorder, unspecified; F17.210 Nicotine dependence, cigarettes, uncomplicated; F12.10 Cannabis abuse, uncomplicated; Z90.49 Acquired absence of other specified parts of digestive tract; W00.0XXA Fall on same level due to ice and snow, initial encounter; Y93.89 Activity, other specified; Y92.481 Parking lot as the place of occurrence of the external cause; Y99.8 Other external cause status
CPT/HCPCS: 70450; 70486; 72125; 84703; 96374; 96375; 99285; J1885; J2360; J2405; J3010

== ENCOUNTER → 2020-03-13 | Outpatient (CLI) | payer OTHER ==
[~2020-03-13] MED LIST changes: +ORPH-16 PO
--- NOTE | 2020-03-13 13:20 | RAD ---
AP Internal and external rotation views with Y-View of the right shoulder were performed. Indication: Right-sided shoulder pain Comparison: None. No fracture, glenohumeral or AC joint subluxation, or significant degenerative changes are seen. The subacromial space is maintained. Impression: 1. Negative exam of the right shoulder. Electronically signed by: Miky Mendiola MD (03/13/2020 1:17 PM) [id number]
== END | disposition home or self-care (01) ==
LOC: RAD 13:02
PROVIDERS: ATTEND Nurse Practitioner Family
DX: M25.511 Pain in right shoulder (principal)
CPT/HCPCS: 73030

== ENCOUNTER 2020-07-05 19:20 | Emergency (ER) | payer SELFPAY ==
[~2020-07-05] VITALS: Ht 165.1 cm; Wt 87.9 kg
--- NOTE | 2020-07-05 19:42 | PHYS DOC ---
Past History Past Medical History: Anxiety, Depression, Other Additional Past Medical Histor: PTSD Past Surgical History: Cholecystectomy Smoking: Cigarettes Alcohol Use: Occasionally Drug Use: Marijuana General Adult EDM: Chief Complaint: SEIZURE HPI: HPI: 25-year-old female presents after seizure at work. Patient states that she has intermittent seizures. Her last 1 was a month and half ago. They tend to occur when she is stressed out. She was working a 12-hour shift today. The seizure was witnessed by her coworkers who called EMS. Patient did bite the right side of her tongue. She has been eating and drinking normally. She denies alcohol or drug use. She states that she has been worked up for seizures in the past but they have determined not to put her on any seizure medications. She denies any other injuries today. Denies fever or chills. Review of Systems: Review of Systems: Constitutional: Denies fever or chills Eyes: Denies change in visual acuity HENT: Denies nasal congestion or sore throat Respiratory: Denies cough or shortness of breath Cardiovascular: Denies chest pain or edema GI: Denies abdominal pain, nausea, vomiting, bloody stools or diarrhea : Denies dysuria Musculoskeletal: Denies back pain or joint pain Integument: Denies rash Neurologic: Seizure. Denies headache, focal weakness or sensory changes Endocrine: Denies polyuria or polydipsia Lymphatic: Denies swollen glands Psychiatric: Denies depression or anxiety Heart Score: Risk Factors: Risk Factors: DM, Current or recent (<one month) smoker, HTN, HLP, family histo ry of CAD, obesity. Risk Scores: Score 0 - 3: 2.5% MACE over next 6 weeks - Discharge Home Score 4 - 6: 20.3% MACE over next 6 weeks - Admit for Clinical Observation Score 7 - 10: 72.7% MACE over next 6 weeks - Early Invasive Strategies Current Medications: Current Meds: Current Medications Medications (Trade) Dose Ordered Sig/Hermann Start Time Stop Time Status Last Admin Dose Admin Ondansetron HCl (Zofran) 4 mg 1X ONCE 07/05/20 19:45 07/05/20 19:46 Sodium Chloride 1,000 ml @ 1,000 mls/hr 1X ONCE 07/05/20 19:45 07/05/20 20:44 Allergies: Allergies: Allergies Coded Allergies Type Severity Reaction Last Updated Verified No Known Drug Allergies 10/05/15 No Physical Exam: PE: Constitutional: Well developed, well nourished, no acute distress, non-toxic appearance. [] HENT: Normocephalic, atraumatic, bilateral external ears normal, oropharynx moist, no oral exudates, nose normal. Small superficial laceration of the right anterior tongue.[] Eyes: PERRLA, EOMI, conjunctiva normal, no discharge. [] Neck: Normal range of motion, no tenderness, supple, no stridor. [] Cardiovascular:Heart rate regular rhythm, no murmur [] Lungs & Thorax: Bilateral breath sounds clear to auscultation [] Abdomen: Bowel sounds normal, soft, no tenderness, no masses, no pulsatile masses. [] Skin: Warm, dry, no erythema, no rash. [] Back: No tenderness, no CVA tenderness. [] Extremities: No tenderness, no cyanosis, no clubbing, ROM intact, no edema. [] Neurologic: Alert and oriented X 3, normal motor function, normal sensory function, no focal deficits noted. [] Psychologic: Affect normal, judgement normal, mood normal. [] EKG: EKG: [] Radiology/Procedures: Radiology/Procedures: [] Course & Med Decision Making: Course & Med Decision Making Pertinent Labs and Imaging studies reviewed. (See chart for details) The patient's labs are unremarkable except for a lactic acid of 4.4. This would be consistent with seizure. We will give her 30 mL/kg of fluid. The patient's repeat lactic acid is 1.1. She is stable for discharge at this time. She has had no further complications in the emergency room. I have encouraged her to follow-up with neurology. [] Dragon Disclaimer: Dragon Disclaimer: This electronic medical record was generated, in whole or in part, using a voice recognition dictation system. Departure Departure: Impression: Primary Impression: Seizure Disposition: 01 HOME/RESIDENCE PRIOR TO ADM Condition: STABLE Referrals: PCP,NO (PCP) Patient Instructions: Seizure, Adult, [id number] Justification of Admission: Justification of Admission: Justification of Admission Dx: N/A RENETTA SOLIS DO Jul 05, 2020 19:42
[2020-07-05 19:45] LABS: BASO # 0.1 x10^3/uL (0.0-0.2); BASO % 1 % (0-3); EOS # 0.1 x10^3/uL (0.0-0.7); EOS % 1 % (0-3); HEMOGLOBIN 14.6 g/dL (12.0-15.5); LYMPH # 3.1 x10^3/uL (1.0-4.8); LYMPH % 46 % (24-48); MEAN CORPUSCULAR HEMOGLOBIN 31 pg (25-35); MEAN CORPUSCULAR HGB CONC 34 g/dL (31-37); MEAN CORPUSCULAR VOLUME 91 fL (79-100); MONO # 0.4 x10^3/uL (0.0-1.1); MONO % 6 % (0-9); NEUT % 45 % (31-73); PLATELET COUNT 300 x10^3/uL (140-400); RED BLOOD COUNT 4.71 x10^6/uL (3.50-5.40); RED CELL DISTRIBUTION WIDTH 15.9 % (11.5-14.5); WHITE BLOOD COUNT 6.7 x10^3/uL (4.0-11.0)
[2020-07-05] MEDS ORDERED: ONDANSETRON PF 4 MG/2 ML VIAL. IVP ONE (19:45)
[2020-07-05] MEDS: IV NORMAL SALINE 1,000ML 1,000 ML IV ONE ×2 (19:45→20:14)
[2020-07-05 19:55] LABS: CALCIUM 9.6 mg/dL (8.5-10.1); GFR 68.1; POTASSIUM 3.9 mmol/L (3.5-5.1)
[2020-07-05 20:01] LABS: ALBUMIN 4.4 g/dL (3.4-5.0); ALBUMIN/GLOBULIN RATIO 1.3 (1.0-1.7); TOTAL BILIRUBIN 0.6 mg/dL (0.2-1.0); TOTAL PROTEIN 7.9 g/dL (6.4-8.2)
[2020-07-05 21:26] LABS: BARBITURATES NEG (NEG); BENZODIAZEPINES NEG (NEG); CANNABINOIDS NEG (NEG); COCAINE NEG (NEG); METHADONE NEG (NEG); OPIATES NEG (NEG); PHENCYCLIDINE NEG (NEG)
[2020-07-05 21:27] LABS: AMPHETAMINE/METHAMPHETAMINE NEG (NEG)
[2020-07-05 21:32] LABS: BILIRUBIN,URINE NEG (NEG); CLARITY,URINE HAZY; COLOR,URINE YELLOW; GLUCOSE,URINE NEG (NEG)
[2020-07-05 21:33] LABS: BACTERIA,URINE FEW /HPF (0-FEW); NITRITE,URINE NEG (NEG); UROBILINOGEN,URINE 0.2 mg/dL (0.2 mg/dL)
[2020-07-05] MEDS: IV NORMAL SALINE 1,000ML 1,000 ML IV SCH ×3 (22:24→22:35)
[2020-07-05 22:49] VITALS: BP 116/62
== END 2020-07-05 23:14 | disposition home or self-care (01) ==
LOC: ER 19:20
DX: S01.512A Laceration without foreign body of oral cavity, initial encounter (principal); R56.9 Unspecified convulsions; F17.210 Nicotine dependence, cigarettes, uncomplicated; F41.9 Anxiety disorder, unspecified; F32.9 Major depressive disorder, single episode, unspecified; F43.10 Post-traumatic stress disorder, unspecified; X58.XXXA Exposure to other specified factors, initial encounter; Y93.89 Activity, other specified; Y92.89 Other specified places as the place of occurrence of the external cause; Y99.8 Other external cause status
CPT/HCPCS: 36415; 80053; 80307; 81001; 81025; 83605; 85025; 96361; 96374; 99285; J2405; J7030

== ENCOUNTER 2020-08-30 20:41 | Emergency (ER) | payer SELFPAY ==
[~2020-08-30] VITALS: Ht 165.1 cm; Wt 81.0 kg
--- NOTE | 2020-08-30 20:50 | PHYS DOC ---
Past History Past Medical History: Anxiety, Depression, Seizure, Other Additional Past Medical Histor: PTSD Past Surgical History: Cholecystectomy Smoking: Cigarettes Alcohol Use: Occasionally Drug Use: Marijuana General Adult HPI: HPI: History taken patient and EMS. Patient is a 25-year-old female history of anxiety, depression, PTSD, seizures who presents with chief complaint of seizure-like activity. EMS states there called the patient's work for a 5- minute witnessed seizure. Patient states she could feel the seizure coming on. She denies any oral trauma or urinary incontinence. States no one knows what causes her seizures. She states they are not tied directly to stress. She notes she has never seen a neurologist. She denies any headache or fever. Denies vomiting. Denies any drug or alcohol abuse. States he has been on her home medications as prescribed. States she has a seizure estimated once every 3 to 4 weeks. Does not take any antiepileptics. She states she has had these seizures for approximately 3 years. She states they seem to be occurring more frequently. States she has not seen a neurologist due to insurance issues. No other complaints. Review of Systems: Review of Systems: Constitutional: Denies fever or chills Eyes: Denies change in visual acuity HENT: Denies nasal congestion or sore throat Respiratory: Denies cough or shortness of breath Cardiovascular: Denies chest pain or edema GI: Denies abdominal pain, nausea, vomiting, bloody stools or diarrhea : Denies dysuria Musculoskeletal: Denies back pain or joint pain Integument: Denies rash Neurologic: Seizure-like activity Endocrine: Denies polyuria or polydipsia Lymphatic: Denies swollen glands Psychiatric: Denies depression or anxiety Allergies: Allergies: Allergies Coded Allergies Type Severity Reaction Last Updated Verified No Known Drug Allergies 10/05/15 No Physical Exam: PE: Constitutional: Well developed, well nourished, no acute distress, non-toxic appearance. [] HENT: Normocephalic, atraumatic, bilateral external ears normal, oropharynx moist, no oral exudates, nose normal. [] Eyes: PERRLA, EOMI, conjunctiva normal, no discharge. [] Neck: Normal range of motion, no tenderness, supple, no stridor. [] Cardiovascular:Heart rate regular rhythm, no murmur [] Lungs & Thorax: Bilateral breath sounds clear to auscultation [] Abdomen:soft, no tenderness, no masses, no pulsatile masses. [] Skin: Warm, dry, no erythema, no rash. [] Back: No tenderness, no CVA tenderness. [] Extremities: No tenderness, no cyanosis, no clubbing, ROM intact, no edema. [] Neurologic: Alert with intact cognitive function. No aphasia, dysarthria, or neglect. GCS 15. Pupils 3 mm briskly reactive b/l. No APD present. Cranial nerves 2-12 grossly intact; no facial asymmetry present, tongue midline, shoulder shrugging strength intact. Strength 5/5 and symmetric throughout. Light touch sensation intact throughout. Cerebellar testing appropriate without evidence of dysdiadochokinesia. DTR's 2+ in all 4 extremities. Negative pronator drift bilaterally. Gait normal Psychologic: Affect normal, judgement normal, mood normal. [] Current Patient Data: Labs: Laboratory Tests Test 08/30/20 20:56 08/30/20 21:00 08/30/20 21:28 Sodium Level 138 mmol/L Potassium Level 3.5 mmol/L Chloride Level 100 mmol/L Carbon Dioxide Level 24 mmol/L Anion Gap 14 Blood Urea Nitrogen 7 mg/dL Creatinine 0.9 mg/dL Estimated GFR (Cockcroft-Gault) 76.9 Glucose Level 97 mg/dL Calcium Level 9.7 mg/dL Urine Opiates Screen Neg Urine Methadone Screen Neg Urine Barbiturates Neg Urine Phencyclidine Screen Neg Urine Amphetamine/Methamphetamine Neg Urine Benzodiazepines Screen Neg Urine Cocaine Screen Neg Urine Cannabinoids Screen Neg Urine Ethyl Alcohol Neg Bedside Urine HCG, Qualitative hcg negative Current Medications Medications (Trade) Dose Ordered Sig/Hermann Route PRN Reason Start Time Stop Time Status Last Admin Dose Admin Sodium Chloride 1,000 ml @ 1,000 mls/hr 1X ONCE IV 08/30/20 21:00 08/30/20 21:59 08/30/20 20:59 Vital Signs: Vital Signs Date Time Temp Pulse Resp B/P (MAP) Pulse Ox O2 Delivery O2 Flow Rate FiO2 08/30/20 20:41 98.2 102 18 156/59 (91) 98 Room Air EKG: EKG: [] EKG consistent with normal sinus rhythm. Ventricular rate of 89 bpm. Art normal. Intervals normal. No acute ischemic changes noted. Radiology/Procedures: Radiology/Procedures: [] Heart Score: Risk Factors: Risk Factors: DM, Current or recent (<one month) smoker, HTN, HLP, family history of CAD, obesity. Risk Scores: Score 0 - 3: 2.5% MACE over next 6 weeks - Discharge Home Score 4 - 6: 20.3% MACE over next 6 weeks - Admit for Clinical Observation Score 7 - 10: 72.7% MACE over next 6 weeks - Early Invasive Strategies Course & Med Decision Making: Course & Med Decision Making Pertinent Labs and Imaging studies reviewed. (See chart for details) [] Patient is well-appearing 25-year-old female presents with chief complaint of seizure-like activity. She states she is had multiple episodes similar to this over the past 3 years. She has not followed up with neurology due to insurance issues. Upon arrival she does have a GCS of 15 with no neurologic deficits. No signs of postictal behavior. Basic labs were obtained. Chemistry panel appears normal. CT head imaging will be deferred given this is consistent with previous seizures, normal neurologic exam, and no red flag signs or symptoms regarding her current seizure activity. Patient was monitored in emergency depa rtment showed no repeat seizure-like activity. Overall do feel she appropriate for discharge home. She will be given referral to a neurologist for further work-up. Return precautions discussed and understood. She is stable for discharge home. Radha Disclaimer: Radha Disclaimer: This electronic medical record was generated, in whole or in part, using a voice recognition dictation system. Departure Departure: Impression: Primary Impression: Seizure-like activity Disposition: 01 DC HOME SELF CARE/HOMELESS Condition: STABLE Referrals: PCP,NO (PCP) RAMEZ ONTIVEROS MD, FARIZ MD Patient Instructions: Seizure, Adult Additional Instructions: Please follow-up with your primary care physician in the next 2 to 3 days. TARA GARG DO Aug 30, 2020 20:50
[2020-08-30] MEDS ORDERED: IV NORMAL SALINE 1,000ML 1,000 ML IV ONE (21:00)
--- NOTE | 2020-08-30 21:07 | EKG ---
[facility] ED [facility] [place] [id number] Test Date: 2020-08-30 Test Time: 20:55:30 Pat Name: JEAN YOUNG Department: Room: Gender: F Freelance Data Entry: ZACKARY : 1995 Requested By: TARA GARG Order Number: [id number] Reading MD: Anam Felipe Measurements Intervals Eunice Rate: 89 P: 46 KS: 166 QRS: 13 QRSD: 78 T: 13 QT: 346 QTc: 422 Interpretive Statements SINUS RHYTHM NORMAL ECG RI6.02 No previous ECG available for comparison Electronically Signed On 09-04-2020 11:37:11 SENIOR POLICY ADVISOR by Anam Felipe
[2020-08-30 21:21] LABS: CALCIUM 9.7 mg/dL (8.5-10.1); CREATININE 0.9 mg/dL (0.6-1.0); GFR 76.9; POTASSIUM 3.5 mmol/L (3.5-5.1)
[2020-08-30 21:43] VITALS: BP 141/72
[2020-08-30 21:43] LABS: BARBITURATES NEG (NEG); BENZODIAZEPINES NEG (NEG); CANNABINOIDS NEG (NEG); COCAINE NEG (NEG); METHADONE NEG (NEG); OPIATES NEG (NEG); PHENCYCLIDINE NEG (NEG)
[2020-08-30 21:48] LABS: AMPHETAMINE/METHAMPHETAMINE NEG (NEG)
[2020-08-30 22:01] LABS: BILIRUBIN,URINE NEG (NEG); CLARITY,URINE HAZY; COLOR,URINE YELLOW; GLUCOSE,URINE NEG (NEG)
[2020-08-30 22:02] LABS: NITRITE,URINE NEG (NEG); UROBILINOGEN,URINE 0.2 mg/dL (0.2 mg/dL)
[2020-08-30 22:03] LABS: BACTERIA,URINE MOD /HPF (0-FEW); RBC,URINE OCC /HPF (0-2); WBC,URINE OCC /HPF (0-4)
== END 2020-08-30 22:05 | disposition home or self-care (01) ==
LOC: ER 20:41
DX: R56.9 Unspecified convulsions (principal); R20.2 Paresthesia of skin; F41.9 Anxiety disorder, unspecified; F32.9 Major depressive disorder, single episode, unspecified; F12.90 Cannabis use, unspecified, uncomplicated; F17.210 Nicotine dependence, cigarettes, uncomplicated; Z90.49 Acquired absence of other specified parts of digestive tract
CPT/HCPCS: 36415; 80048; 80307; 81001; 81025; 87086; 93005; 96360; 99284; J7030; 87077; 87186

== ENCOUNTER 2020-10-10 23:40 | Emergency (ER) | payer SELFPAY ==
[~2020-10-10] VITALS: Ht 165.1 cm; Wt 79.0 kg
[2020-10-10 23:40] VITALS: BP 142/92
--- NOTE | 2020-10-10 23:42 | PHYS DOC ---
Past History Past Medical History: Anxiety, Depression, Seizure, Other Additional Past Medical Histor: PTSD Past Surgical History: Cholecystectomy Smoking: Cigarettes Alcohol Use: Occasionally Drug Use: Marijuana General Adult HPI: HPI: ".. I self cut for stress relief.. I cut a little more than usual... I just been told they are reducing my hours at work.. I do this time to time.. when I am stress.. I am not suicidal...".." I know this is not good coping ..but it works for me..." Patient is a 25 year old female who presents with above hx and complaints of Lt. arm lacerations -several lacerations on top of old scarred lacerations, distal neurovascular intact. Patient is right-hand dominant. Patient admits to self cutting for stress relief. Patient denies any suicidal or homicidal ideation. Patient requesting closure of the lacerations that are still bleeding from self cutting approximately half an hour ago. No recent travel or specific ill c ontacts. Works at [employer]. Has been told she has been laid off because of Covid. Review of Systems: Review of Systems: Constitutional: Denies fever or chills Eyes: Denies change in visual acuity HENT: Denies nasal congestion or sore throat Respiratory: Denies cough or shortness of breath Cardiovascular: Denies chest pain or edema GI: Denies abdominal pain, nausea, vomiting, bloody stools or diarrhea : Denies dysuria Musculoskeletal: Denies back pain or joint pain Integument: Denies rash complains of several lacerations which she placed for stress relief on her left arm Neurologic: Denies headache, focal weakness or sensory changes Endocrine: Denies polyuria or polydipsia Lymphatic: Denies swollen glands Psychiatric: Hx of anxiety Family History: Family History: Noncontributory Current Medications: Current Meds: See nursing for home meds Allergies: Allergies: Allergies Coded Allergies Type Severity Reaction Last Updated Verified No Known Drug Allergies 10/05/15 No Physical Exam: PE: Constitutional: Moderate acute distress, non-toxic appearance. [] HENT: Normocephalic, atraumatic, bilateral external ears normal, oropharynx moist, no oral exudates, nose normal. [] Eyes: PERRLA, EOMI, conjunctiva normal, no discharge. Glasses Neck: Normal range of motion, no tenderness, supple, no stridor. [] Cardiovascular:Heart rate regular rhythm, no murmur [] Lungs & Thorax: Bilateral breath sounds equal apex with few scattered wheezes auscultation [] Abdomen: Bowel sounds normal, soft, no tenderness, no masses, no pulsatile masses. [] Old surgery scars Skin: Warm, dry, no erythema, no rash. Multiple new self-induced laceration of left forearm. Patient has multiple old healed self-induced scars on her forearms. Back: No tenderness, no CVA tenderness. [] Extremities: No tenderness, no cyanosis, no clubbing, ROM intact, no edema. [] Neurologic: Alert and oriented X 3, normal motor function, normal sensory func tion, no focal deficits noted. [] Psychologic: Affect anxious, judgement normal, mood normal. [] EKG: EKG: [] Radiology/Procedures: Radiology/Procedures: [] Heart Score: Risk Factors: Risk Factors: DM, Current or recent (<one month) smoker, HTN, HLP, family his tory of CAD, obesity. Risk Scores: Score 0 - 3: 2.5% MACE over next 6 weeks - Discharge Home Score 4 - 6: 20.3% MACE over next 6 weeks - Admit for Clinical Observation Score 7 - 10: 72.7% MACE over next 6 weeks - Early Invasive Strategies Course & Med Decision Making: Course & Med Decision Making Pertinent Labs and Imaging studies reviewed. (See chart for details) Procedure note-laceration repair-patient washed laceration with surgical soap and water. Irrigated laceration normal saline. Betadine applied to its wounds. Wound closed with stapler x16. Dressing applied by nursing patient encouraged to keep lacerations clean and dry. Apply Polysporin 4 times a day. Patient encouraged to follow-up at counseling center and develop other methods of stress relief. [place] should be removed within 10 days. Monitor closely for infection Impression: 1. Multiple self-induced lacerations to left wrist-placed for stress release (patient denies any suicidal ideation or homicidal ideation) [] Dragon Disclaimer: Dragon Disclaimer: This electronic medical record was generated, in whole or in part, using a voice recognition dictation system. Departure Departure: Referrals: PCP,SREEDHAR (PCP) Radha Disclaimer This chart was dictated in whole or in part using Voice Recognition software in a busy, high-work load, and often noisy Emergency Department environment. It may contain unintended and wholly unrecognized errors or omissions. SHONNA BILL MD Oct 10, 2020 23:42
[2020-10-11] MEDS: BACITRACIN ZINC TOPICAL OINT PACKET. TP ONE
[2020-10-11] MEDS: TETANUS AND DIPHTHERIA TOX/PF 0.5 ML VIAL. VAX IM ONE
[2020-10-11] MEDS ORDERED: DIPH,PERTUSS(ACELL),TET VAC/PF 0.5 ML SYRINGE. VAX IM ONE (00:30)
== END 2020-10-11 00:05 | disposition home or self-care (01) ==
LOC: ER 23:40
DX: S61.512A Laceration without foreign body of left wrist, initial encounter (principal); F17.210 Nicotine dependence, cigarettes, uncomplicated; X78.8XXA Intentional self-harm by other sharp object, initial encounter; Y93.89 Activity, other specified; Y92.89 Other specified places as the place of occurrence of the external cause; Y99.8 Other external cause status
CPT/HCPCS: 12002; 99282

== ENCOUNTER 2020-11-12 01:48 | Emergency (ER) | payer SELFPAY ==
[~2020-11-12] VITALS: Ht 165.1 cm; Wt 86.0 kg
[2020-11-12 02:37] LABS: HEMATOCRIT 42.9 % (36.0-47.0); HEMOGLOBIN 14.7 g/dL (12.0-15.5); RED BLOOD COUNT 4.68 x10^6/uL (3.50-5.40); RED CELL DISTRIBUTION WIDTH 13.6 % (11.5-14.5); WHITE BLOOD COUNT 7.5 x10^3/uL (4.0-11.0)
[2020-11-12 02:43] LABS: BACTERIA,URINE 0 /HPF (0-FEW); BILIRUBIN,URINE NEG (NEG); CLARITY,URINE CLEAR; COLOR,URINE YELLOW; GLUCOSE,URINE NEG (NEG); NITRITE,URINE NEG (NEG); RBC,URINE 0 /HPF (0-2); SQUAMOUS EPITHELIAL CELL,UR FEW /LPF; UROBILINOGEN,URINE 0.2 mg/dL (0.2 mg/dL); WBC,URINE OCC /HPF (0-4)
[2020-11-12 02:45] LABS: CALCIUM 9.7 mg/dL (8.5-10.1); CREATININE 0.7 mg/dL (0.6-1.0); GFR 102.8; POTASSIUM 3.7 mmol/L (3.5-5.1)
--- NOTE | 2020-11-12 02:49 | PHYS DOC ---
Past History Past Medical History: Anxiety, Depression, Seizure, Other Additional Past Medical Histor: PTSD Past Surgical History: Cholecystectomy Smoking: Cigarettes Alcohol Use: Occasionally Drug Use: Marijuana Adult General Chief Complaint Chief Complaint: SYNCOPE HPI HPI Patient is a 25-year-old female who presents with a chief complaint of lightheadedness. States she has had episode of this approximately 1 time a year for the last 6 or 7 years. States she is following with her primary care physician who does not feel that these are seizures or epileptic seizures and is not on any seizure medication. States that she was in the shower earlier and like to take really hot showers and while in there got hot, felt, nauseous and lightheaded and almost passed out. States she did get what she calls tunnel vision for a few seconds but after getting out of the shower and sitting down for a few minutes felt back to baseline. Denies headache, changes in vision, chest pain, shortness of breath, abdominal pain, nausea, vomiting, dysuria, hematuria or blood in the stool. Denies any numbness/weakness/tingling. Denies any injuries. Denies any recent travel, fevers or known ill contacts. States she is otherwise eating and drinking normally for her. States she is making urine and stool normally for her. Review of Systems Review of Systems Review of systems otherwise unremarkable except for noted in HPI. Allergies Allergies Allergies Coded Allergies Type Severity Reaction Last Updated Verified No Known Drug Allergies 10/05/15 No Physical Exam Physical Exam Constitutional: Well developed, well nourished, no acute distress, non-toxic appearance. [] HENT: Normocephalic, atraumatic, bilateral external ears normal, oropharynx moist, no oral exudates, nose normal. [] Eyes: PERRLA, EOMI, conjunctiva normal, no discharge. [] Neck: Normal range of motion, no tenderness, supple, no stridor. [] Cardiovascular:Heart rate regular rhythm, no murmur [] Lungs & Thorax: Bilateral breath sounds clear to auscultation [] Abdomen: Bowel sounds normal, soft, no tenderness, no masses, no pulsatile masses. [] Skin: Warm, dry, no erythema, no rash. [] Back: No tenderness, no CVA tenderness. [] Extremities: No tenderness, no cyanosis, no clubbing, ROM intact, no edema. [] Neurologic: Alert and oriented X 3, normal motor function, normal sensory function, no focal deficits noted able to ambulate without issue. NIH of 0. [] Psychologic: Affect normal, judgement normal, mood normal. [] Current Patient Data Lab Results Laboratory Tests Test 11/12/20 01:55 11/12/20 02:15 11/12/20 02:20 Urine Collection Type Unknown Urine Color Yellow Urine Clarity Clear Urine pH 7.5 Urine Specific Cherry 1.020 Urine Protein Neg (NEG-TRACE) Urine Glucose (UA) Neg mg/dL (NEG) Urine Ketones (Stick) Neg mg/dL (NEG) Urine Blood Neg (NEG) Urine Nitrite Neg (NEG) Urine Bilirubin Neg (NEG) Urine Urobilinogen Dipstick 0.2 mg/dL (0.2 mg/dL) Urine Leukocyte Esterase Neg (NEG) Urine RBC 0 /HPF (0-2) Urine WBC Occ /HPF (0-4) Urine Squamous Epithelial Cells Few /LPF Urine Bacteria 0 /HPF (0-FEW) POC Urine HCG, Qualitative hcg negative (Negative) White Blood Count 7.5 x10^3/uL (4.0-11.0) Red Blood Count 4.68 x10^6/uL (3.50-5.40) Hemoglobin 14.7 g/dL (12.0-15.5) Hematocrit 42.9 % (36.0-47.0) Mean Corpuscular Volume 92 fL (79-100) Mean Corpuscular Hemoglobin 31 pg (25-35) Mean Corpuscular Hemoglobin Concent 34 g/dL (31-37) Red Cell Distribution Width 13.6 % (11.5-14.5) Platelet Count 287 x10^3/uL (140-400) EKG EKG EKG with a rate of 79, QRS of 74, QTc 395, no STEMI. [] Radiology/Procedures Radiology/Procedures [] Heart Score HEART Score for Chest Pain: HEART Score for Chest Pain Response (Comments) Value History Slighlty/Non-Suspicious 0 ECG Normal 0 Age < 45 0 Risk Factors 1 or 2 Risk Factors 1 Total 1 Risk Factors: Risk Factors: DM, Current or recent (<one month) smoker, HTN, HLP, family history of CAD, obesity. Risk Scores: Risk Factors: DM, Current or recent (<one month) smoker, HTN, HLP, family history of CAD, obesity. Course & Med Decision Making Course & Med Decision Making Patient is a 25-year-old female who presents with a chief complaint of lightheadedness associated with nausea but no vomiting Vital signs not concerning. Physical exam noted above. EKG not concerning and noted. Laboratory analysis not concerning. Urinalysis not concerning. Patient alert and oriented in no acute distress with no focal neurologic deficits, normal vital signs and at baseline, and asymptomatic in the emergency department and since being in the emergency department. Discussed all findings with patient advised to call her primary care physician first thing this morning to update on ED visit and set up a post ER follow-up visit. Also gave information on the [facility] clinics if she felt like establishing care with another facility. Patient very grateful, verbalized understanding and agreed with plan of discharge. [] Dragon Disclaimer Dragon Disclaimer This electronic medical record was generated, in whole or in part, using a voice recognition dictation system. Departure Departure: Impression: Primary Impression: Lightheadedness Disposition: 01 DC HOME SELF CARE/HOMELESS Condition: GOOD Referrals: PCP,NO (PCP) JACQUES HERNANDEZ MD Nov 12, 2020 02:49
[2020-11-12 03:20] VITALS: BP 134/96
--- NOTE | 2020-11-12 13:10 | EKG ---
[address] [address] Test Date: 2020-11-12 Test Time: 02:11:23 Pat Name: JEAN YOUNG Department: Room: Gender: F Lift Mechanic: : 1995 Requested By: JACQUES HERNANDEZ Order Number: [id number] Reading MD: Measurements Intervals Nichols Rate: 79 P: 46 TX: 168 QRS: 11 QRSD: 74 T: 16 QT: 344 QTc: 395 Interpretive Statements SINUS RHYTHM LEFT ATRIAL ABNORMALITY ABNORMAL ECG RI6.02 No previous ECG available for comparison
== END 2020-11-12 03:20 | disposition home or self-care (01) ==
LOC: ER 01:48
DX: R42 Dizziness and giddiness (principal); R11.0 Nausea; H53.8 Other visual disturbances; F41.9 Anxiety disorder, unspecified; F32.9 Major depressive disorder, single episode, unspecified; F12.90 Cannabis use, unspecified, uncomplicated; F43.12 Post-traumatic stress disorder, chronic; F17.210 Nicotine dependence, cigarettes, uncomplicated; Z90.49 Acquired absence of other specified parts of digestive tract
CPT/HCPCS: 36415; 80048; 81001; 81025; 85027; 93005; 99284

== ENCOUNTER → 2020-11-20 | Outpatient (CLI) | payer MEDICAID, OTHER ==
[2020-11-12 03:20] VITALS: BP 134/96
--- NOTE | 2020-11-20 11:05 | RAD ---
CT HEAD/BRAIN WO Date: 11/20/2020 10:47 AM Clinical Indication: SEIZURES AND MIGRAINES, SYNCOPE EPISODES Comparison: None. Technique: 5 mm axial tomographic images were obtained of the head without contrast. These were view ed on brain and bone windows. One or more of the following dose reduction techniques were utilized: A utomated exposure control (AEC), Adjustment of mA and/or kV according to patient size, Use of iterati ve reconstruction technique such as ASiR, CT scan done according to ALARA and image gently/image cruz ly Findings: The brain parenchyma is normal in attenuation. No intra- or extra-axial mass or fluid collection. No acute hemorrhage. The ventricles are normal in size, shape, and morphology. The al-white matter kirill ction is normal. The subarachnoid cisterns are patent. The visualized paranasal sinuses are normal. The visualized portions of the orbits and globes are no rmal. The mastoid air cells are clear. The director of maternity services topogram shows no lytic lesion or fracture. Impression: No acute intracranial process. Electronically signed by: Francisco Rios MD (11/20/2020 11:02 AM) [id number]
== END ==
LOC: CT 10:32
PROVIDERS: ATTEND Nurse Practitioner Family
DX: G43.909 Migraine, unspecified, not intractable, without status migrainosus (principal); R56.9 Unspecified convulsions; R55 Syncope and collapse
CPT/HCPCS: 70450

== ENCOUNTER 2020-12-22 22:11 | Emergency (ER) | payer SELFPAY ==
[~2020-12-22] VITALS: Ht 165.1 cm; Wt 86.0 kg
[2020-12-22 22:15] VITALS: BP 130/86
--- NOTE | 2020-12-22 22:50 | PHYS DOC ---
Past History Past Medical History: Anxiety, Depression, Seizure, Other Additional Past Medical Histor: PTSD Past Surgical History: Cholecystectomy Smoking: Cigarettes Alcohol Use: None Drug Use: Marijuana Adult General Chief Complaint Chief Complaint: SEIZURE HPI HPI Patient is a 25-year-old female with a past medical history of anxiety and depression, with possible seizure activity who presents to the emergency [facility] with a chief complaint of seizure activity. States she was at her friend's house about an hour before coming to the emergency department and had seizure-like activity. States that it lasted approximately 30 to 45 seconds per her friend. States when she woke up she was not confused and knew what happened. Denies any incontinence or biting of the tongue. States she has talked to her primary care physician about this and was started on Keppra, twice a day but does not have a formal diagnosis of epileptic seizures and has not seen a neurologist yet. States she has had a CAT scan a couple of months ago, that was normal. States that she had not eaten anything today yet, which is normal for her. Denies any alcohol or drug use. Denies any recent travel, illnesses, known ill contacts, fevers, Covid/flu symptoms. Denies any recent traumas. Denies any prodrome to the event. Review of Systems Review of Systems Review of systems otherwise unremarkable except noted in HPI Allergies Allergies Allergies Coded Allergies Type Severity Reaction Last Updated Verified No Known Drug Allergies 10/05/15 No Physical Exam Physical Exam Constitutional: Well developed, well nourished, no acute distress, non-toxic appearance. [] HENT: Normocephalic, atraumatic, bilateral external ears normal, oropharynx moist, no oral exudates, nose normal. [] Eyes: PERRLA, EOMI, conjunctiva normal, no discharge. [] Neck: Normal range of motion, no tenderness, supple, no stridor. [] Cardiovascular:Heart rate regular rhythm, no murmur [] Lungs & Thorax: Bilateral breath sounds clear to auscultation [] Abdomen: soft, no tenderness, no masses, no pulsatile masses. [] Skin: Warm, dry, no erythema, no rash. [] Back: No tenderness, Extremities: No tenderness, no cyanosis, no clubbing, ROM intact, no edema. [] Neurologic: Alert and oriented X 3, normal motor function, normal sensory function, no focal deficits noted. NIH of 0. [] Psychologic: Affect normal, judgement normal, mood normal. [] Current Patient Data Vital Signs Vital Signs Date Time Temp Pulse Resp B/P (MAP) Pulse Ox O2 Delivery O2 Flow Rate FiO2 12/22/20 22:15 98.7 79 20 130/86 (101) 98 Room Air EKG EKG EKG with a rate of 78, QRS of 70, QTc of 400, no STEMI [] Radiology/Procedures Radiology/Procedures [] Heart Score Risk Factors: Risk Factors: DM, Current or recent (<one month) smoker, HTN, HLP, family history of CAD, obesity. Risk Scores: Risk Factors: DM, Current or recent (<one month) smoker, HTN, HLP, family history of CAD, obesity. Course & Med Decision Making Course & Med Decision Making Patient is a 25-year-old female who presents with a concern of syncope/seizure. Vital signs not concerning. Physical exam noted above. EKG noted above and not concerning. Patient not . Laboratory analysis not concerning. Magnesium normal. Lactate normal. Patient took p.o. in the ED without issue. No focal neurologic deficits. Given nighttime dose of Keppra. Advised that she needs to eat at [place] 3 nutritious meals a day, and going the whole day without eating is not good for you. Advised to take her medications as prescribed. Advised to refrain from substances if this is an issue. Advised on sleep patterns. Patient stated she was feeling well and was ready to be discharged home. Discussed findings with patient advised to follow-up with her primary care first thing Thursday. Gave strict return precautions to the ED. Patient grateful, verbalized understanding and agreed with plan of discharge. [] Dragon Disclaimer Dragon Disclaimer This electronic medical record was generated, in whole or in part, using a voice recognition dictation system. Departure Departure: Impression: Primary Impression: Syncope Disposition: 01 DC HOME SELF CARE/HOMELESS Condition: Referrals: KENDALL NAGY (PCP) Patient Instructions: Syncope Additional Instructions: Please read all attached information. Please be sure to eat 3 nutritious meals a day with plenty of fluids. Please be sure to get at least 7 hours of night of sleep. Please refrain from any substance abuse if this pertains to you. Please take your Keppra as prescribed. Please call your primary care physician as soon as you can to update on ED visit and set up a follow-up visit. Please come back to the ED with new or concerning symptoms as discussed. JACQUES HERNANDEZ MD Dec 22, 2020 22:50
[2020-12-22 23:08] LABS: CALCIUM 9.7 mg/dL (8.5-10.1); CREATININE 0.7 mg/dL (0.6-1.0); GFR 102.8; POTASSIUM 3.6 mmol/L (3.5-5.1)
[2020-12-22 23:10] LABS: BASO % 1 % (0-3); EOS # 0.1 x10^3/uL (0.0-0.7); EOS % 1 % (0-3); HEMATOCRIT 48.7 % (36.0-47.0); HEMOGLOBIN 16.4 g/dL (12.0-15.5); LYMPH # 3.3 x10^3/uL (1.0-4.8); LYMPH % 44 % (24-48); MEAN CORPUSCULAR HEMOGLOBIN 31 pg (25-35); MEAN CORPUSCULAR HGB CONC 34 g/dL (31-37); MEAN CORPUSCULAR VOLUME 94 fL (79-100); MONO # 0.4 x10^3/uL (0.0-1.1); MONO % 6 % (0-9); NEUT # 3.6 x10^3uL (1.8-7.7); NEUT % 49 % (31-73); PLATELET COUNT 262 x10^3/uL (140-400); RED BLOOD COUNT 5.21 x10^6/uL (3.50-5.40); RED CELL DISTRIBUTION WIDTH 13.5 % (11.5-14.5); WHITE BLOOD COUNT 7.4 x10^3/uL (4.0-11.0)
[2020-12-22 23:13] LABS: ALBUMIN 4.5 g/dL (3.4-5.0); ALBUMIN/GLOBULIN RATIO 1.1 (1.0-1.7); MAGNESIUM 1.9 mg/dL (1.8-2.4); TOTAL BILIRUBIN 0.8 mg/dL (0.2-1.0); TOTAL PROTEIN 8.5 g/dL (6.4-8.2)
[2020-12-22] MEDS ORDERED: levETIRAcetam 500 MG TABLET PO ONE (23:15)
[2020-12-22] MEDS ORDERED: ACETAMINOPHEN 500 MG TABLET PO ONE (23:15)
[2020-12-22 23:28] LABS: CLARITY,URINE HAZY
[2020-12-22 23:29] LABS: BACTERIA,URINE FEW /HPF (0-FEW); BILIRUBIN,URINE NEG (NEG); COLOR,URINE STRAW; GLUCOSE,URINE NEG (NEG); NITRITE,URINE NEG (NEG); SQUAMOUS EPITHELIAL CELL,UR FEW /LPF; UROBILINOGEN,URINE 0.2 mg/dL (0.2 mg/dL); WBC,URINE OCC /HPF (0-4)
[2020-12-22 23:30] LABS: AMORPHOUS SEDIMENT,UR PRESENT /HPF
--- NOTE | 2020-12-23 04:00 | EKG ---
[facility] ED [facility] [place] [id number] Test Date: 2020-12-22 Test Time: 22:24:11 Pat Name: JEAN YOUNG Department: Room: Gender: F Customs Verifier: : 1995 Requested By: JACQUES HERNANDEZ Order Number: [id number] Reading MD: Measurements Intervals [place] Rate: 78 P: 41 NV: 158 QRS: 12 QRSD: 70 T: 26 QT: 348 QTc: 400 Interpretive Statements SINUS RHYTHM LEFT ATRIAL ABNORMALITY ABNORMAL ECG RI6.02 No previous ECG available for comparison
== END 2020-12-23 00:15 | disposition home or self-care (01) ==
LOC: ER 22:11
DX: R55 Syncope and collapse (principal); R56.9 Unspecified convulsions; F41.9 Anxiety disorder, unspecified; F32.9 Major depressive disorder, single episode, unspecified; F43.10 Post-traumatic stress disorder, unspecified; F17.210 Nicotine dependence, cigarettes, uncomplicated
CPT/HCPCS: 36415; 80053; 81001; 81025; 83605; 83735; 85025; 93005; 99284

== ENCOUNTER 2021-04-14 21:25 | Emergency (ER) | payer SELFPAY ==
[~2021-04-14] VITALS: Ht 165.1 cm; Wt 86.0 kg
[2021-04-14] MEDS ORDERED: IBUPROFEN 600 MG TABLET. PO ONE (21:45)
[2021-04-14] MEDS ORDERED: HYDROcodone/APAP 5/325MG 1 TAB TABLET PO ONE (21:45)
[2021-04-14] MEDS ORDERED: ONDANSETRON PF 4 MG/2 ML VIAL. IVP ONE (22:45)
[2021-04-14] MEDS ORDERED: ONDANSETRON ODT 4 MG TAB.RAPDIS ONE (23:35)
[2021-04-14 23:39] LABS: BACTERIA,URINE FEW /HPF (0-FEW); BILIRUBIN,URINE NEG (NEG); CLARITY,URINE CLEAR; COLOR,URINE YELLOW; GLUCOSE,URINE NEG (NEG); NITRITE,URINE NEG (NEG); RBC,URINE 0 /HPF (0-2); SQUAMOUS EPITHELIAL CELL,UR MANY /LPF; UROBILINOGEN,URINE 0.2 mg/dL (0.2 mg/dL)
[2021-04-14 23:41] LABS: BARBITURATES NEG (NEG); BENZODIAZEPINES NEG (NEG); CANNABINOIDS NEG (NEG); COCAINE NEG (NEG); METHADONE NEG (NEG); OPIATES NEG (NEG); PHENCYCLIDINE NEG (NEG)
[2021-04-14 23:44] LABS: AMPHETAMINE/METHAMPHETAMINE NEG (NEG)
[2021-04-14] MEDS ORDERED: ONDANSETRON ODT 4 MG TAB.RAPDIS PO ONE (23:45)
--- NOTE | 2021-04-14 23:59 | RAD ---
CT head without contrast: Reason for examination: Seizure. Fell. Complains of nausea and vomiting and left hip and pelvic pain. Helical images were obtained through the brain with no contrast administered. Exposure: One or more of the following individualized dose reduction techniques were utilized for thi s examination: 1. Automated exposure control 2. Adjustment of the mA and/or kV according to patient size 3. Use of iterative reconstruction technique. Ventricular systems are symmetric and not dilated. No midline shift is seen. There is no evidence of intracranial hemorrhage, infarct, mass or edema. No abnormalities of seen at the orbits. The paranasa l sinuses and mastoid air cells are clear. No acute skull abnormality is seen. IMPRESSION: No acute intracranial abnormality evident. Pelvis and left hip 2 views: Single view of the pelvis shows no evidence of fracture. Bone density is normal. No abnormality is se en at the sacrum or sacroiliac joints. Proximal femurs are intact. 2 views of the left hip show no evidence of fracture or dislocation. The bone density is normal. No a bnormal periosteal reaction is seen. Joint space is maintained. IMPRESSION: No acute bony abnormalities in the pelvis or left hip. Electronically signed by: Lisa Gómez MD (04/14/2021 11:57 PM) [place]
--- NOTE | 2021-04-15 00:18 | PHYS DOC ---
Past History Past Medical History: Anxiety, Depression, Seizure, Other Additional Past Medical Histor: PTSD (DANIEL LINARES APRN) Past Surgical History: Cholecystectomy (DANIEL LINARES APRN) Smoking: Cigarettes Alcohol Use: Occasionally Drug Use: Marijuana (DANIEL LINARES APRN) Adult General Chief Complaint Chief Complaint: SEIZURE HPI HPI Patient is a 26-year-old female presents to emergency department with chief complaint of seizure activity. Patient was brought here by EMS lead [place]. Patient states that her seizure was not witnessed. Patient states that she woke up next to her service dog and felt as if she had a seizure. Patient complains of left hip pain. Patient thinks she may have fallen against her hip. Patient denies loss of bowel or bladder, denies biting her tongue. Patient states she takes Keppra, hydroxyzine, mirtazapine, trazodone, doxazosin, and Celebrex. Patient states she sees JEREMIAH Guzman NP for primary care, patient states she goes to the [facility] for [facility] care. Patient denies seeing halos, denies visual disturbances, denies headache, denies nausea, vomiting, diarrhea, constipation, or abdominal pain. Patient denies chest pain. Patient denies any recent fever or chills. Patient denies any other physical complaints or physical concerns. Patient states her last seizure was a month ago. (DANIEL LINARES APRN) Review of Systems Review of Systems 14 body systems of review of systems have been reviewed. See HPI for pertinent positives and negative responses, otherwise all other systems are negative, nonpertinent or noncontributory. (DANIEL LINARES APRN) Current Medications Current Medications Current Medications Medications (Trade) Dose Ordered Sig/Hermann Start Time Stop Time Status Last Admin Dose Admin Acetaminophen/ Hydrocodone Bitart (Lortab 5/325) 1 tab 1X ONCE 04/14/21 21:45 04/14/21 21:46 DC 04/14/21 22:18 1 TAB Ibuprofen (Motrin) 600 mg 1X ONCE 04/14/21 21:45 04/14/21 21:46 DC 04/14/21 22:19 600 MG Ondansetron HCl (Zofran Odt) 4 mg STK-MED ONCE 04/14/21 23:35 04/14/21 23:35 DC Ondansetron HCl (Zofran) 4 mg 1X ONCE 04/14/21 22:45 04/14/21 23:33 DC (DANIEL LINARES APRN) Allergies Allergies Allergies Coded Allergies Type Severity Reaction Last Updated Verified No Known Drug Allergies 10/05/15 No (DANIEL LINARES APRN) Physical Exam Physical Exam Constitutional: Well developed, well nourished, no acute distress, non-toxic appearance. 26-year-old female in no apparent distress. HENT: Normocephalic, atraumatic, bilateral external ears normal, oropharynx moist, no oral exudates, nose normal. No oral trauma appreciated. The patient's tongue does not have any trauma or bleeding. Eyes: PERRLA, EOMI, conjunctiva normal, no discharge. Neck: Normal range of motion, no tenderness, supple, no stridor. No meningismus signs, no nuchal rigidity. Cardiovascular:Heart rate regular rhythm, no murmur heart sounds S1-S2 to auscultation. Lungs & Thorax: Bilateral breath sounds clear to auscultation all lung contreras, no adventitious lung sounds appreciated. Abdomen: Bowel sounds normal, soft, no tenderness, no masses, no pulsatile masses. Skin: Warm, dry, no erythema, no rash. Back: No tenderness, no CVA tenderness. Extremities: No tenderness, no cyanosis, no clubbing, ROM intact, no edema. Except for left hip, pain to palpation left lateral hip, no crepitus or deformity appreciated, there is no lateral rotation of lower extremity, distal pulses 2+, distal cap refill less than 2 seconds, no swelling or erythema appreciated, no loss of sensation. Neurologic: Alert and oriented X 3, normal motor function, normal sensory function, no focal deficits noted. Psychologic: Affect normal, judgement normal, mood normal. (DANIEL LINARES APRN) Current Patient Data Vital Signs Vital Signs Date Time Temp Pulse Resp B/P (MAP) Pulse Ox O2 Delivery O2 Flow Rate FiO2 04/14/21 21:33 98.3 103 18 144/83 (103) 97 Room Air Lab Results Laboratory Tests Test 04/14/21 23:05 04/14/21 23:21 Urine Collection Type Unknown Urine Color Yellow Urine Clarity Clear Urine pH 6.0 Urine Specific [place] 1.020 Urine Protein Neg (NEG-TRACE) Urine Glucose (UA) Neg mg/dL (NEG) Urine Ketones (Stick) Neg mg/dL (NEG) Urine Blood Neg (NEG) Urine Nitrite Neg (NEG) Urine Bilirubin Neg (NEG) Urine Urobilinogen Dipstick 0.2 mg/dL (0.2 mg/dL) Urine Leukocyte Esterase Neg (NEG) Urine RBC 0 /HPF (0-2) Urine WBC 1-4 /HPF (0-4) Urine Squamous Epithelial Cells Many /LPF Urine Bacteria Few /HPF (0-FEW) Urine Opiates Screen Neg (NEG) Urine Methadone Screen Neg (NEG) Urine Barbiturates Neg (NEG) Urine Phencyclidine Screen Neg (NEG) Urine Amphetamine/Methamphetamine Neg (NEG) Urine Benzodiazepines Screen Neg (NEG) Urine Cocaine Screen Neg (NEG) Urine Cannabinoids Screen Neg (NEG) Urine Ethyl Alcohol Neg (NEG) POC Urine HCG, Qualitative hcg negative (Negative) (DANIEL LINARES APRN) EKG EKG [] (DANIEL LINARES APRN) Radiology/Procedures Radiology/Procedures []PATIENT: JEAN YOUNG RACCOUNT: [id number]#: [id number] : 1995 LOCATION: ER AGE: 26 SEX: F EXAM STATUS: REG ER ORD. PHYSICIAN: DANIEL LINARES APRN REASON: seizure, nausea, vomiting PROCEDURE: CT HEAD WO CONTRAST CT head without contrast: Reason for examination: Seizure. Fell. Complains of nausea and vomiting and left hip and pelvic pain. Helical images were obtained through the brain with no contrast administered. Exposure: One or more of the following individualized dose reduction techniques were utilized for this examination: 1. Automated exposure control 2. Adjustment of the mA and/or kV according to patient size 3. Use of iterative reconstruction technique. Ventricular systems are symmetric and not dilated. No midline shift is seen. There is no evidence of intracranial hemorrhage, infarct, mass or edema. No abnormalities of seen at the orbits. The paranasal sinuses and mastoid air cells are clear. No acute skull abnormality is seen. IMPRESSION: No acute intracranial abnormality evident. Pelvis and left hip 2 views: Single view of the pelvis shows no evidence of fracture. Bone density is normal. No abnormality is seen at the sacrum or sacroiliac joints. Proximal femurs are intact. 2 views of the left hip show no evidence of fracture or dislocation. The bone density is normal. No abnormal periosteal reaction is seen. Joint space is maintained. IMPRESSION: No acute bony abnormalities in the pelvis or left hip. Electronically signed by: Alicia Webb MD (04/14/2021 11:57 PM) [facility] DICTATED AND SIGNED BY: ALICIA WEBB MD DATE: 04/14/21 3709 CC: DANIEL LINARES APRN; KENDALL NAGY; EMERGENCY,DEPARTMENT ~MTH0 0 (DANIEL LINARES APRN) Heart Score C/O Chest Pain: No Risk Factors: Risk Factors: DM, Current or recent (<one month) smoker, HTN, HLP, family history of CAD, obesity. Risk Scores: Risk Factors: DM, Current or recent (<one month) smoker, HTN, HLP, family history of CAD, obesity. (DANIEL LINARES APRN) Course & Med Decision Making Course & Med Decision Making Pertinent Labs and Imaging studies reviewed. (See chart for details) 26-year-old female, vital signs reviewed, presents emergency department complaining of seizure activity today, this was an unwitnessed seizure, physical examination unremarkable, the patient's physical presentation not typical for grand mal type seizure, there was no oral trauma, the patient did not lose continence. The patient is alert and oriented. The patient is not postictal. Will order urine test, urinalysis assay, urine drug screen CT head, x- ray imaging of left hip and pelvis. The patient's urine was not infected, she was not per urine test, radiologic imaging unremarkable, the patient's urine drug screen was negative for illicit drug use. Patient was given p.o. pain medications in the ED, it was noted that the patient ambulated to the restroom with steady gait without limp. Discussed findings with patient, patient gave verbal understanding of discharge home instructions, follow-up with [facility] for ongoing seizure care, follow-up with her primary care for ongoing pain management. Return to ER precautions and concerns, the patient had no further questions or concerns and the patient was discharged home without incident. (DANIEL LINARES APRN) Course & Med Decision Making Did not see or evaluate patient. Agree with [employer]'s work-up and disposition per note. (JACQUES HERNANDEZ MD) Dragon Disclaimer Dragon Disclaimer This electronic medical record was generated, in whole or in part, using a voice recognition dictation system. (DANIEL LINARES APRN) Departure Departure: Impression: Primary Impression: Seizure-like activity Additional Impression: Left hip pain Disposition: HOME / SELF CARE / HOMELESS Condition: GOOD Referrals: KENDALL NAGY (PCP) Additional Instructions: You are seen in the emergency department today for a reported seizure and left hip pain. Your CT imaging of the head and x-ray imaging of your left hip did not show any concerning findings, there were no broken bones, there was no brain injury. Please use ice to the sore areas, follow-up with your [place] for ongoing seizure management and care, please follow-up with your primary care provider for ongoing pain management of your hip pain. Please return to the emergency department for worsening symptoms or other concerns. EMERGENCY DEPARTMENT GENERAL DISCHARGE INSTRUCTIONS Thank you for coming to [facility] (ED) today and trusting us with you care. We trust that you had a positivie experience in our Emergency Department. If you wish to speak to the department management, you may call the director at [phone]. YOUR FOLLOW UP INSTRUCTIONS ARE FOLLOWS: 1. Do you have a private Doctor? If you do not have a private doctor, please ask for a resource list of physicians or clinics that may be able to assist you with follow up care. 2. The Emergency Physician has interpreted your x-rays. The X-Ray specialist will also review them. If there is a change in the findings, you will be notified in 48 hours when at all possible. 3. A lab test or culture has been done, your results will be reviewed and you will be notified if you need a change in treatment. ADDITIONAL INSTRUCTIONS AND INFORMATION: 1. Your care today has been supervised by a physician who is specially trained in emergency care. Many problems require more than one evaluation for a complete diagnosis and treatment. We recommend that you schedule your follow up appointment as recommended to ensure complete treatment of you illness or injury. If you are unable to obtain follow up care and continue to have a problem, or if your condition worsens, we recommend that you return to the ED. 2. We are not able to safely determine your condition over the phone nor are we able to give sound medical advice over the phone. For these safety reasons, if you call for medical advice we will ask you to come to the ED for further evaluation. 3. If you have any questions regarding these discharge instructions please call the ED at [phone]. SAFETY INFORMATION: In the interest of safety, wellness, and injury prevention; we encourage you to wear your sealbelt, if you smoke; quite smoking, and we encourage family to use a protective helmet for bicycling and other sporting events that present an increased risk for head injury. IF YOUR SYMPTOMS WORSEN OR NEW SYMPTOMS DEVELOP, OR YOU HAVE CONCERNS ABOUT YOUR CONDITION; OR IF YOUR CONDITION WORSENS WHILE YOU ARE WAITING FOR YOUR FOLLOW UP APPOINTMENT; EITHER CONTACT YOUR PRIMARY CARE DOCTOR, THE PHYSICIAN WHOSE NAME AND NUMBER YOU WERE GIVEN, OR RETURN TO THE ED IMMEDIATELY. Problem Qualifiers DANIEL LINARES APRN Apr 15, 2021 00:18 JACQUES HERNANDEZ MD Apr 15, 2021 00:30
[2021-04-15 00:35] VITALS: BP 123/78
== END 2021-04-15 00:46 | disposition home or self-care (01) ==
LOC: ER 21:25
DX: R56.9 Unspecified convulsions (principal); M25.552 Pain in left hip; Z32.02 Encounter for pregnancy test, result negative
CPT/HCPCS: 36415; 70450; 73502; 80307; 81001; 81025; 99285; Q0162

== ENCOUNTER 2021-07-12 18:35 | Emergency (ER) | payer SELFPAY ==
[~2021-07-12] VITALS: Ht 165.1 cm; Wt 89.1 kg
--- NOTE | 2021-07-12 18:58 | PHYS DOC ---
Past History Past Medical History: Anxiety, Depression, Seizure, Other Additional Past Medical Histor: PTSD (LINH BURCIAGA APRN) Past Surgical History: Cholecystectomy (LINH BURCIAGA APRN) Smoking: Cigarettes Alcohol Use: Occasionally Drug Use: Marijuana (LINH BURCIAGA APRN) General Adult EDM: Chief Complaint: MECHANICAL FALL HPI: HPI: Patient is a 26-year-old female being seen in the ER for an unwitnessed seizure that occurred around 1530 today. Patient states that she hit her head following the seizure. She states she knows she had a seizure because she bit her tongue. Patient is complaining of right-sided head pain that she rates 6 out of 10. She takes 1500 mg of Keppra for her seizures. She denies missing any doses. She states her last seizure was 2 months ago. Patient denies any loss of bowel or bladder or any vision changes. She states that she does not have insurance and therefore does not have a neurologist that she follows up with. Patient is not postictal at this time. (LINH BURCIAGA APRN) Review of Systems: Review of Systems: 14 body systems of the review of systems have been reviewed. See HPI for pertinent positive and negative responses, otherwise all other systems are negative, nonpertinent or noncontributory (LINH BURCIAGA APRN) Allergies: Allergies: Allergies Coded Allergies Type Severity Reaction Last Updated Verified No Known Drug Allergies 10/05/15 No (LINH BURCIAGA APRN) Physical Exam: PE: Constitutional: Well developed, well nourished, no acute distress, non-toxic appearance. [] HENT: Normocephalic, atraumatic, bilateral external ears normal, oropharynx moist, no oral exudates, nose normal, superficial laceration noted to the right side of patient's tonguethis does not require suturing or wound repair. No hematoma noted to patient's head, no abrasions noted. [] Eyes: PERRLA, EOMI, conjunctiva normal, no discharge. [] Neck: Normal range of motion, no bony cervical spinal tenderness, no step-offs or crepitus palpated, supple, no stridor. [] Cardiovascular:Heart rate regular rhythm, no murmur [] Lungs & Thorax: Bilateral breath sounds clear to auscultation [] Abdomen: Bowel sounds normal, soft, no tenderness, no masses, no pulsatile masses. [] Skin: Warm, dry, no erythema, no rash. [] Back: No bony spinal tenderness, no crepitus or step-offs palpated, normal range of motion Extremities: No tenderness, no cyanosis, no clubbing, ROM intact, no edema. [] Neurologic: Alert and oriented X 3, normal motor function, normal sensory function, no focal deficits noted. [] Psychologic: Affect normal, judgement normal, mood normal. [] (LINH BURCIAGA APRN) Current Patient Data: Vital Signs: Vital Signs Date Time Temp Pulse Resp B/P (MAP) Pulse Ox O2 Delivery O2 Flow Rate FiO2 07/12/21 18:48 99.0 107 20 146/84 (104) 95 Room Air (LINH BUCRIAGA APRN) EKG: EKG: [] (LINH BURCIAGA APRN) Radiology/Procedures: Radiology/Procedures: PROCEDURE: CT HEAD AND CERVICAL SPINE WO EXAMINATION: CT HEAD AND C-SPINE WO CLINICAL HISTORY: Seizure, fall TECHNIQUE: Serial axial images without IV contrast were obtained from the vertex to the foramen magnum. CT of the cervical spine without IV contrast. Spiral, high resolution axial images were obtained from the skull base to the cervicothoracic junction with sagittal and coronal planar reconstructions. CT Dose Reduction Employed: One or more of the following individualized dose reduction techniques were utilized for this examination: 1. Automated exposure control 2. Adjustment of the mA and/or kV according to patient size 3. Use of iterative reconstruction technique. COMPARISON: CT head 04/14/2021 FINDINGS: BRAIN: Acute Change: No evidence of an acute contusion or other acute parenchymal process. Hemorrhage: No evidence of acute intracranial hemorrhage. Mass Lesion/Mass Effect: No evidence of intracranial mass or extraaxial fluid collection. No significant mass effect. Parenchyma: Parenchyma within normal limits for age. Ventricles: Ventricles within normal limits for age. Paranasal Sinuses and Skull Base: Visualized paranasal sinuses clear. No evidence of acute calvarial fracture. C-SPINE: Alignment: Normal anatomic alignment. Osseous Structures: No evidence of acute fracture or spondylolisthesis. Degenerative Changes: No significant degenerative changes. Cervical Soft Tissues: No prevertebral soft tissue swelling. IMPRESSION: BRAIN: No evidence of acute intracranial abnormality or significant interval change. C-SPINE: No evidence of acute osseous abnormality involving the cervical spine. Electronically signed by: Darren Zhang DO (07/12/2021 8:09 PM) [facility] DICTATED AND SIGNED BY: DARREN ZHANG DO DATE: 07/12/212004 CC: KENDALL NAGY; LINH BURCIAGA APRN ~MTH0 0 []PROCEDURE: HIP LEFT 2 VIEW EXAMINATION: XR HIP_LT 2-3 VIEWS CLINICAL HISTORY: Fall TECHNIQUE: XR HIP_LT 2-3 VIEWS Number of Images/Views: 2 COMPARISON: 04/14/2021 FINDINGS: Joint space alignment maintained in the left hip. Pubic symphysis and left SI joint maintained. No acute fracture. IUD in place. IMPRESSION: No acute osseous abnormality left hip. Electronically signed by: Darren Zhang DO (07/12/2021 8:12 PM) [facility] DICTATED AND SIGNED BY: DARREN ZHANG DO DATE: 07/12/212010 CC: KENDALL NAGY; LINH BURCIAGA APRN ~MTH0 0 (LINH BURCIAGA APRN) Heart Score: C/O Chest Pain: No Risk Factors: Risk Factors: DM, Current or recent (<one month) smoker, HTN, HLP, family history of CAD, obesity. Risk Scores: Score 0 - 3: 2.5% MACE over next 6 weeks - Discharge Home Score 4 - 6: 20.3% MACE over next 6 weeks - Admit for Clinical Observation Score 7 - 10: 72.7% MACE over next 6 weeks - Early Invasive Strategies (LINH BURCIAGA APRN) Course & Med Decision Making: Course & Med Decision Making Pertinent Labs and Imaging studies reviewed. (See chart for details) [] Patient is a 26-year-old female with a known history of seizures who takes 1500 mg of Keppra. She states she had an unwitnessed seizure around 1530 today. Patient reports hitting her head and reporting right-sided head pain. Work-up in the ER consisted of blood work, urinalysis, CT scan of head and neck. A therapeutic drug level was obtained for her Keppra and this is a send out and she will be notified of the results when they become available. Seizure precautions initiated in the ER. While in CT patient started complaining of left hip pain. An x-ray was performed of her left hip and it was negative for any acute findings. Lab work in the ER was unremarkable. Patient advised to continue taking her Keppra as directed and follow-up with [facility] I discussed with patient all findings and diagnostic testing as well as the need to follow-up with PCP for further evaluation and treatment or return to the ER if any new or worsening symptoms. Strict return precautions were also discussed at length. Patient voiced understanding and agreement with the plan. Patient is hemodynamically stable at the time of disposition. (LINH BURCIAGA APRN) Dragon Disclaimer: Dragheron Disclaimer: This electronic medical record was generated, in whole or in part, using a voice recognition dictation system. (LINH BURCIAGA APRN) Departure Departure: Impression: Primary Impression: Seizure-like activity Disposition: HOME / SELF CARE / HOMELESS Condition: GOOD Referrals: KENDALL NAGY (PCP) Patient Instructions: Seizure, Adult Additional Instructions: You were seen in the ER today for seizure-like activity. Your lab work in the ER was negative for any acute findings. Your CT head and neck was negative. The x-ray of your left hip was negative for any acute findings. Please continue to take your Keppra as directed. If you need a neurologist you can follow-up with Dr. Sampson. His phone number is [phone]. You are being sent home with discharge information on [facility] which is a place that you can get discounted care. Please return to the ER if you have another seizure or develop syncope, chest pain, shortness of breath, vision changes, unilateral weakness or any new or worsening concerns. EMERGENCY DEPARTMENT GENERAL DISCHARGE INSTRUCTIONS Thank you for coming to [facility] (ED) today and trusting us with you care. We trust that you had a positivie experience in our Emergency Department. If you wish to speak to the department management, you may call the director at [phone]. YOUR FOLLOW UP INSTRUCTIONS ARE FOLLOWS: 1. Do you have a private Doctor? If you do not have a private doctor, please a sk for a resource list of physicians or clinics that may be able to assist you with follow up care. 2. The Emergency Physician has interpreted your x-rays. The X-Ray specialist will also review them. If there is a change in the findings, you will be notified in 48 hours when at all possible. 3. A lab test or culture has been done, your results will be reviewed and you will be notified if you need a change in treatment. ADDITIONAL INSTRUCTIONS AND INFORMATION: 1. Your care today has been supervised by a physician who is specially trained in emergency care. Many problems require more than one evaluation for a complete diagnosis and treatment. We recommend that you schedule your follow up appointment as recommended to ensure complete treatment of you illness or injury. If you are unable to obtain follow up care and continue to have a problem, or if your condition worsens, we recommend that you return to the ED. 2. We are not able to safely determine your condition over the phone nor are we able to give sound medical advice over the phone. For these safety reasons, if you call for medical advice we will ask you to come to the ED for further evaluation. 3. If you have any questions regarding these discharge instructions please call the ED at [phone]. SAFETY INFORMATION: In the interest of safety, wellness, and injury prevention; we encourage you to wear your sealbelt, if you smoke; quite smoking, and we encourage family to use a protective helmet for bicycling and other sporting events that present an increased risk for head injury. IF YOUR SYMPTOMS WORSEN OR NEW SYMPTOMS DEVELOP, OR YOU HAVE CONCERNS ABOUT YOUR CONDITION; OR IF YOUR CONDITION WORSENS WHILE YOU ARE WAITING FOR YOUR FOLLOW UP APPOINTMENT; EITHER CONTACT YOUR PRIMARY CARE DOCTOR, THE PHYSICIAN WHOSE NAME AND NUMBER YOU WERE GIVEN, OR RETURN TO THE ED IMMEDIATELY. Attending Signature Attending Signature I have participated in the care of this patient and I have reviewed and agree with all pertinent clinical information above including history, exam, and recommendations. (SHONNA BILL MD) LINH BURCIAGA APRN Jul 12, 2021 18:58 SHONNA BILL MD Jul 15, 2021 06:30
[2021-07-12 20:09] LABS: BASO % 0 % (0-3); EOS % 0 % (0-3); HEMATOCRIT 47.3 % (36.0-47.0); HEMOGLOBIN 16.4 g/dL (12.0-15.5); LYMPH # 2.3 x10^3/uL (1.0-4.8); LYMPH % 23 % (24-48); MEAN CORPUSCULAR HEMOGLOBIN 32 pg (25-35); MEAN CORPUSCULAR HGB CONC 35 g/dL (31-37); MEAN CORPUSCULAR VOLUME 93 fL (79-100); MONO # 0.5 x10^3/uL (0.0-1.1); MONO % 6 % (0-9); NEUT # 6.9 x10^3uL (1.8-7.7); NEUT % 71 % (31-73); PLATELET COUNT 277 x10^3/uL (140-400); RED BLOOD COUNT 5.07 x10^6/uL (3.50-5.40); RED CELL DISTRIBUTION WIDTH 12.6 % (11.5-14.5); WHITE BLOOD COUNT 9.7 x10^3/uL (4.0-11.0)
--- NOTE | 2021-07-12 20:11 | RAD ---
EXAMINATION: CT HEAD AND C-SPINE WO CLINICAL HISTORY: Seizure, fall TECHNIQUE: Serial axial images without IV contrast were obtained from the vertex to the foramen magnum. CT of the cervical spine without IV contrast. Spiral, high resolution axial images were obtained from the skull base to the cervicothoracic junction with sagittal and coronal planar reconstructions. CT Dose Reduction Employed: One or more of the following individualized dose reduction techniques wer e utilized for this examination: 1. Automated exposure control 2. Adjustment of the mA and/or kV ac cording to patient size 3. Use of iterative reconstruction technique. COMPARISON: CT head 04/14/2021 FINDINGS: BRAIN: Acute Change: No evidence of an acute contusion or other acute parenchymal process. Hemorrhage: No evidence of acute intracranial hemorrhage. Mass Lesion/Mass Effect: No evidence of intracranial mass or extraaxial fluid collection. No signific ant mass effect. Parenchyma: Parenchyma within normal limits for age. Ventricles: Ventricles within normal limits for age. Paranasal Sinuses and Skull Base: Visualized paranasal sinuses clear. No evidence of acute calvarial fracture. C-SPINE: Alignment: Normal anatomic alignment. Osseous Structures: No evidence of acute fracture or spondylolisthesis. Degenerative Changes: No significant degenerative changes. Cervical Soft Tissues: No prevertebral soft tissue swelling. IMPRESSION: BRAIN: No evidence of acute intracranial abnormality or significant interval change. C-SPINE: No evidence of acute osseous abnormality involving the cervical spine. Electronically signed by: Darren Cool DO (07/12/2021 8:09 PM) [facility]
--- NOTE | 2021-07-12 20:14 | RAD ---
EXAMINATION: XR HIP_LT 2-3 VIEWS CLINICAL HISTORY: Fall TECHNIQUE: XR HIP_LT 2-3 VIEWS Number of Images/Views: 2 COMPARISON: 04/14/2021 FINDINGS: Joint space alignment maintained in the left hip. Pubic symphysis and left SI joint maintained. No ac [place] fracture. IUD in place. IMPRESSION: No acute osseous abnormality left hip. Electronically signed by: Darren Cool DO (07/12/2021 8:12 PM) [facility]
[2021-07-12 20:24] LABS: CALCIUM 9.7 mg/dL (8.5-10.1); CREATININE 0.6 mg/dL (0.6-1.0); GFR 121.8
[2021-07-12 20:30] LABS: ALBUMIN 4.6 g/dL (3.4-5.0); ALBUMIN/GLOBULIN RATIO 1.4 (1.0-1.7); TOTAL BILIRUBIN 0.6 mg/dL (0.2-1.0)
[2021-07-12 21:00] VITALS: BP 139/74
[2021-07-12 21:03] LABS: BILIRUBIN,URINE NEG (NEG); CLARITY,URINE HAZY; COLOR,URINE YELLOW; GLUCOSE,URINE NEG (NEG)
[2021-07-12 21:04] LABS: BACTERIA,URINE MANY /HPF (0-FEW); NITRITE,URINE NEG (NEG); RBC,URINE OCC /HPF (0-2); SQUAMOUS EPITHELIAL CELL,UR MANY /LPF; UROBILINOGEN,URINE 0.2 mg/dL (0.2 mg/dL)
== END 2021-07-12 21:02 | disposition home or self-care (01) ==
LOC: ER 18:35
DX: S01.512A Laceration without foreign body of oral cavity, initial encounter (principal); R56.9 Unspecified convulsions; R51.9 Headache, unspecified; M25.552 Pain in left hip; F41.9 Anxiety disorder, unspecified; F32.9 Major depressive disorder, single episode, unspecified; F17.210 Nicotine dependence, cigarettes, uncomplicated; X58.XXXA Exposure to other specified factors, initial encounter; Y93.89 Activity, other specified; Y92.89 Other specified places as the place of occurrence of the external cause; Y99.8 Other external cause status
CPT/HCPCS: 36415; 70450; 72125; 73502; 80053; 80177; 81001; 81025; 85025; 87086; 99285-25